=== PATIENT | female | born 1945 | race Hispanic/Latino ===

== ENCOUNTER 2016-12-07 15:47 | Inpatient (IN) | payer MEDICARE ==
--- NOTE | 2016-12-07 16:44 | XRay Report ---
FINAL REPORT EXAM: XR CHEST ROUTINE 2V HISTORY: Shortness of breath TECHNIQUE: upright single view chest PRIORS: None. FINDINGS: Cardiac and mediastinal contours are unremarkable. No focal pulmonary infiltrate is identified. No pleural fluid collection seen. Pulmonary vasculature is unremarkable. IMPRESSION: Negative single-view chest
[2016-12-07 17:04] LABS: Basophils % (Auto) 0.5 % (0.0-1.8); Eosinophils % (Auto) 4.7 % (0.0-4.3); Hematocrit 36.4 % (30.3-42.9); Hemoglobin 11.8 gm/dl (10.1-14.3); Mean Corpuscular HGB Conc 32 % (30-34); Platelet Count 212 K/mm3 (140-440); Red Blood Count 6.51 M/mm3 (3.65-5.03); Red Cell Distribution Width 18.2 % (13.2-15.2); White Blood Count 8.7 K/mm3 (4.5-11.0)
[2016-12-07 17:06] LABS: Mean Corpuscular Hemoglobin 18 pg (28-32); Mean Corpuscular Volume 56 fl (79-97)
[2016-12-07 17:43] LABS: Anion Gap 18 mmol/L; BUN/Creatinine Ratio 24; Blood Urea Nitrogen 17 mg/dL (7-17); Calcium 9.2 mg/dL (8.4-10.2); Carbon Dioxide 27 mmol/L (22-30); Chloride 100.6 mmol/L (98-107); Glucose 94 mg/dL (65-100); Potassium 4.4 mmol/L (3.6-5.0); Sodium 141 mmol/L (137-145)
--- NOTE | 2016-12-07 18:07 | Emergency Department Report ---
ED Shortness of Breath HPI - General Chief Complaint: Dyspnea/Respdistress Stated Complaint: SOB/WHEEZING/CHEST TIGHTNESS Time Seen by Provider: 12/07/16 17:55 Source: patient Mode of arrival: Ambulatory Limitations: No Limitations - History of Present Illness Initial Comments: Patient is 71 years old female history of atrial fibrillation hypertension presenting with two weeks history of shortness of breath, worse when she laid flat she stated that she have to use 2-3 pillows to sleep, associated with cough productive of brownish sputum. Patient denied any fever or chest pain, no nausea no vomiting. He stated that she just saw Dr. Schaffer her stencil printer had an echo done and blood work waiting for the results. MD Complaint: shortness of breath, cough -: Gradual, week(s) Severity: moderate Improves With: nothing Worsens With: lying flat, exertion - Related Data Home Medications Medication Instructions Recorded Confirmed Last Taken Apixaban [Eliquis] 5 mg PO BID 12/20/14 12/07/16 12/07/16 22:09 Metoprolol Xl [Metoprolol 50 mg PO QDAY 12/20/14 12/07/16 12/07/16 08:00 SUCCINATE ER TAB] Omeprazole [PriLOSEC] 20 mg PO PRN PRN 12/20/14 12/07/16 12/07/16 08:00 20MG Levothyroxine [Synthroid] 75 mcg PO QAM 01/31/15 12/07/16 12/07/16 10:00 Sotalol HCl [Sotalol] 80 mg PO BID 01/31/15 12/07/16 12/07/16 10:00 80MG Flecainide [Tambocor] 100 mg PO Q12H 12/07/16 12/07/16 12/07/16 10:00 100MG Allergies Allergy/AdvReac Type Severity Reaction Status Date / Time aspirin Allergy Anaphylaxis Verified 12/20/14 10:08 NSAIDS (Non-Steroidal Allergy Anaphylaxis Verified 12/20/14 10:08 Anti-Inflamma Penicillins Allergy Hives Verified 12/20/14 10:08 prochlorperazine Allergy Unknown Verified 12/20/14 10:08 [From Compazine] prochlorperazine edisylate Allergy Unknown Verified 12/20/14 10:08 [From Compazine] prochlorperazine maleate Allergy Unknown Verified 12/20/14 10:08 [From Compazine] Sulfa (Sulfonamide Allergy Hives Verified 12/20/14 10:08 Antibiotics) ED Review of Systems ROS: Stated complaint: SOB/WHEEZING/CHEST TIGHTNESS Other details as noted in HPI Comment: All other systems reviewed and negative Constitutional: denies: chills, fever Respiratory: cough, orthopnea, shortness of breath, SOB with exertion, SOB at rest. denies: wheezing Cardiovascular: dyspnea on exertion, orthopnea, edema. denies: chest pain, palpitations Genitourinary: denies: urgency, dysuria, frequency Neurological: denies: headache, weakness, numbness ED Past Medical Hx - Past Medical History Previous Medical History?: Yes Hx Hypertension: Yes Hx GERD: Yes Hx Arthritis: Yes Additional medical history: a-fib - Surgical History Past Surgical History?: Yes Hx Cholecystectomy: Yes Hx Appendectomy: Yes - Social History Smoking Status: Never Smoker Substance Use Type: Prescribed - Medications Home Medications: Home Medications Medication Instructions Recorded Confirmed Last Taken Type Apixaban [Eliquis] 5 mg PO BID 12/20/14 12/07/16 12/07/16 22:09 History Metoprolol Xl [Metoprolol 50 mg PO QDAY 12/20/14 12/07/16 12/07/16 08:00 History SUCCINATE ER TAB] Omeprazole [PriLOSEC] 20 mg PO PRN PRN 12/20/14 12/07/16 12/07/16 08:00 History 20MG Levothyroxine [Synthroid] 75 mcg PO QAM 01/31/15 12/07/16 12/07/16 10:00 History Sotalol HCl [Sotalol] 80 mg PO BID 01/31/15 12/07/16 12/07/16 10:00 History 80MG Flecainide [Tambocor] 100 mg PO Q12H 12/07/16 12/07/16 12/07/16 10:00 History 100MG ED Physical Exam - General Limitations: No Limitations General appearance: alert, in no apparent distress - Head Head exam: Present: atraumatic, normocephalic - Eye Eye exam: Present: normal appearance, PERRL - ENT ENT exam: Present: normal exam, normal orophraynx, mucous membranes moist - Neck Neck exam: Present: normal inspection. Absent: tenderness, meningismus - Respiratory Respiratory exam: Present: decreased breath sounds. Absent: respiratory distress, wheezes, rales, accessory muscle use - Cardiovascular Cardiovascular Exam: Present: irregular rhythm - GI/Abdominal GI/Abdominal exam: Present: soft, normal bowel sounds. Absent: distended, tenderness, guarding, rebound - Extremities Exam Extremities exam: Present: normal inspection, normal capillary refill, pedal edema - Back Exam Back exam: Present: normal inspection. Absent: CVA tenderness (R), CVA tenderness (L) - Neurological Exam Neurological exam: Present: alert, oriented X3, CN II-XII intact - Skin Skin exam: Present: warm, intact, normal color ED Course Vital Signs 12/07/16 12/07/16 12/07/16 15:52 15:56 17:02 Temperature 97.7 F Pulse Rate 78 87 Respiratory 16 26 H 20 Rate Blood Pressure 212/89 212/89 O2 Sat by Pulse 95 95 Oximetry 12/07/16 12/07/16 12/07/16 17:16 17:20 17:21 Temperature Pulse Rate 80 88 Respiratory 19 24 Rate Blood Pressure 165/76 O2 Sat by Pulse 96 97 Oximetry 12/07/16 12/07/16 12/07/16 17:30 17:46 18:00 Temperature Pulse Rate 77 77 78 Respiratory 19 20 16 Rate Blood Pressure 186/81 170/75 182/92 O2 Sat by Pulse 95 96 97 Oximetry 12/07/16 12/07/16 12/07/16 18:15 18:30 18:45 Temperature Pulse Rate 73 74 75 Respiratory 20 19 19 Rate Blood Pressure 174/75 175/65 157/62 O2 Sat by Pulse 97 97 98 Oximetry 12/07/16 12/07/16 12/07/16 19:00 19:16 19:30 Temperature Pulse Rate 76 79 83 Respiratory 21 20 18 Rate Blood Pressure 161/67 161/74 152/64 O2 Sat by Pulse 95 88 96 Oximetry 12/07/16 12/07/16 12/07/16 19:46 20:00 20:24 Temperature Pulse Rate 77 79 95 H Respiratory 14 19 25 H Rate Blood Pressure 155/62 159/59 159/59 O2 Sat by Pulse 96 95 95 Oximetry 12/07/16 12/07/16 12/07/16 20:30 20:46 21:00 Temperature Pulse Rate 81 81 86 Respiratory 21 15 15 Rate Blood Pressure 159/59 159/59 159/59 O2 Sat by Pulse 96 96 96 Oximetry - Reevaluation(s) Reevaluation #1: 12/07/16 19:[address] Nielson, stencil printer, he advised to admit the patient to the hospital start patient on Lasix and he will follow-up was high in the morning. ED Medical Decision Making - Lab Data Result diagrams: 12/07/16 19:57 12/07/16 19:57 - EKG Data -: EKG Interpreted by Me Rate: normal - EKG Data Interpretation: nonspecific ST-T wave gilberto, other (needle left bundle-branch block) - Radiology Data Radiology results: report reviewed Chest x-ray unremarkable for acute finding - Medical Decision Making Labs reviewed x-rays and consultation with a stencil printer patient will be admitted to the hospital for workup and treatment for shortness of breath. discuss with Dr Guadarrama for admission. Critical care attestation.: If time is entered above; I have spent that time in minutes in the direct care of this critically ill patient, excluding procedure time. ED Disposition Clinical Impression: Shortness of breath, Afib, Hypertension Disposition: OP ADMIT IP TO THIS HOSP Is pt being admited?: Yes Does the pt Need Aspirin: No (allergic) Condition: Stable
[2016-12-07] MEDS ORDERED: MILK OF MAGNESIA PO PRN (19:43)
[2016-12-07] MEDS ORDERED: NITROSTAT SL PRN (19:43)
[2016-12-07] MEDS ORDERED: DULCOLAX PR PRN (19:43)
[2016-12-07] MEDS ORDERED: TYLENOL PO PRN (19:43)
[2016-12-07] MEDS ORDERED: MORPHINE IV PRN (19:43)
[2016-12-07] MEDS ORDERED: SODIUM CHLORIDE FLUSH SYRINGE 10 ML IV PRN (19:43)
[2016-12-07] MEDS ORDERED: BABY ASPIRIN PO STA (19:43)
[2016-12-07] MEDS ORDERED: PROVENTIL IH PRN (19:43)
[2016-12-07] MEDS ORDERED: ZOFRAN IV PRN (19:43)
--- NOTE | 2016-12-07 19:48 | History and Physical Report ---
History of Present Illness Chief complaint: Im short of breath and i have this cough History of present illness: 71 YO Female with Atrial Fib on Therapeutic Anticoagulation, HTN, GERD, OA, Obesity presents to ED for evaluation. Pt states that she has exeperienced shortness of breath and productive cough of lakhani sputum for the past 2 weeks with worsening symptoms over the past week. Pt acknowledges 2-3 pillow orthopnea, PND, and Dypsnea on exertion. Pt acknowledges decreased exercise tolerance over the past 1 month, as well as 5lbs weight gain over the past 10 days. Pt seen by change coordinator and hae echo done at that time. Pt denies fever, chills,CP, palpitations, unintentional weight loss,night sweats, trauma, noncompliance with low sodium diet, noncompliance with medication, unilateral leg swelling, calf pain, prolonged travel/immobility, recent ill contacts. Pt seen and evaluated in ED and found to be in respiratory distress. Pt treated with supplemental oxygen with improvement in symptoms. Past History Past Medical History: atrial fib, arthritis, GERD, hypertension, other (obesity) Past Surgical History: appendectomy, cholecystectomy Social history: , lives with family. denies: smoking, alcohol abuse, prescription drug abuse, IV drug use Family history: no significant family history (reviewed) Medications and Allergies Allergies Allergy/AdvReac Type Severity Reaction Status Date / Time aspirin Allergy Anaphylaxis Verified 12/20/14 10:08 NSAIDS (Non-Steroidal Allergy Anaphylaxis Verified 12/20/14 10:08 Anti-Inflamma Penicillins Allergy Hives Verified 12/20/14 10:08 prochlorperazine Allergy Unknown Verified 12/20/14 10:08 [From Compazine] prochlorperazine edisylate Allergy Unknown Verified 12/20/14 10:08 [From Compazine] prochlorperazine maleate Allergy Unknown Verified 12/20/14 10:08 [From Compazine] Sulfa (Sulfonamide Allergy Hives Verified 12/20/14 10:08 Antibiotics) Home Medications Medication Instructions Recorded Confirmed Last Taken Type Apixaban [Eliquis] 5 mg PO BID 12/20/14 12/07/16 12/07/16 22:09 History Metoprolol Xl [Metoprolol 50 mg PO QDAY 12/20/14 12/07/16 12/07/16 08:00 History SUCCINATE ER TAB] Omeprazole [PriLOSEC] 20 mg PO PRN PRN 12/20/14 12/07/16 12/07/16 08:00 History 20MG Levothyroxine [Synthroid] 75 mcg PO QAM 01/31/15 12/07/16 12/07/16 10:00 History Sotalol HCl [Sotalol] 80 mg PO BID 01/31/15 12/07/16 12/07/16 10:00 History 80MG Flecainide [Tambocor] 100 mg PO Q12H 12/07/16 12/07/16 12/07/16 10:00 History 100MG Review of Systems Constitutional: weight gain, no weight loss, no fever, no chills, no sweats Ears, nose, mouth and throat: no ear pain, no ear discharge, no tinnitis, no decreased hearing, no nose pain, no nasal congestion Cardiovascular: orthopnea, rapid/irregular heart beat, shortness of breath, dyspnea on exertion, paroxysmal nocturnal dyspnea, leg edema, no chest pain, no palpitations, no syncope, no lightheadedness Respiratory: cough, cough with sputum, shortness of breath, dyspnea on exertion , no hemoptysis Gastrointestinal: no nausea, no vomiting, no diarrhea, no constipation, no change in bowel habits, no hematemesis Genitourinary Female: no pelvic pain, no flank pain, no menorrhagia, no dysuria , no urinary frequency Rectal: no pain, no incontinence, no bleeding Musculoskeletal: no neck stiffness, no neck pain, no shooting arm pain, no arm numbness/tingling, no low back pain, no shooting leg pain Integumentary: no rash, no pruritis, no redness, no sores, no wounds, no jaundice Neurological: no head injury, no transient paralysis, no paralysis, no weakness , no parathesias, no numbness, no tingling, no seizures, no syncope Psychiatric: no anxiety, no memory loss, no change in sleep habits, no sleep disturbances, no insomnia, no hypersomnia, no change in appetite Endocrine: no cold intolerance, no heat intolerance, no polyphagia, no excessive thirst, no polydipsia, no polyuria Hematologic/Lymphatic: no easy bruising, no easy bleeding Allergic/Immunologic: no urticaria, no allergic rhinitis, no wheezing Exam - Constitutional Vitals: Temp Pulse Resp BP Pulse Ox 97.7 F 88 24 165/76 97 12/07/16 15:56 12/07/16 17:20 12/07/16 17:21 12/07/16 17:16 12/07/16 17:21 General appearance: Present: mild distress - EENT Eyes: Present: PERRL ENT: hearing intact, clear oral mucosa - Neck Neck: Present: supple, normal ROM - Respiratory Respiratory: bilateral: diminished, rhonchi - Cardiovascular Rhythm: irregularly irregular - Extremities Extremities: pulses symmetrical, No edema Extremity abnormal: edema Peripheral Pulses: within normal limits - Abdominal General gastrointestinal: Present: soft, non-tender, non-distended, normal bowel sounds Female genitourinary: Present: normal - Integumentary Integumentary: Present: clear, dry - Musculoskeletal Musculoskeletal: gait normal, strength equal bilaterally - Psychiatric Psychiatric: appropriate mood/affect, intact judgment & insight - Neurologic Neurologic: CNII-XII intact, moves all extremities Results - Labs CBC & Chem 7: 12/07/16 19:57 12/07/16 19:57 Labs: Abnormal lab results 12/07/16 Range/Units 16:30 RBC 6.51 H (3.65-5.03) M/mm3 MCV 56 L (79-97) fl MCH 18 L (28-32) pg RDW 18.2 H (13.2-15.2) % Arch[place]ta % (Auto) 9.4 H (0.0-7.3) % Eos % (Auto) 4.7 H (0.0-4.3) % Assessment and Plan - Patient Problems (1) ACS (acute coronary syndrome) Current Visit: Yes Status: Acute Plan to address problem: serial cardiac enzymes, ekg, admit to telemetry, Morphine, supplemental oxygen, Nitro tabs, aspirin, supportive care, cardiology consulted, Echo done in cardiologists office. (2) Hypertensive urgency Current Visit: Yes Status: Acute Plan to address problem: Monitor bp q shift, IV hydralazine, resume current medical management, (3) Atrial fibrillation and flutter Current Visit: Yes Status: Acute Plan to address problem: Therapeutic anticoagulation, cardiology consulted, rate control with Beta damaris. (4) Respiratory failure Current Visit: Yes Status: Acute Qualifiers: Chronicity: C Respiratory failure complication: R Plan to address problem: Supplemental oxygen, nebs, diuresis, pulmonary toilet, tessalon perles for cough , CTA chest to evaluate for embolic disease as well as lung parenchyma evaluation. If no improvement in symptoms with current therapy, may consider treatment for chronic bronchitis. (5) GERD (gastroesophageal reflux disease) Current Visit: Yes Status: Acute Qualifiers: Esophagitis presence: E Plan to address problem: PPI therapy, sit up for 2 hours after evening meal, Increase dose to 20mg BID before meals. (6) DVT prophylaxis Current Visit: Yes Status: Acute
[2016-12-07] MEDS ORDERED: NON-FORMULARY (Omeprazole [Prilosec] 20 MG) PO PRN (19:49)
[2016-12-07 20:06] LABS: Basophils % (Auto) 0.5 % (0.0-1.8); Eosinophils % (Auto) 4.9 % (0.0-4.3); Mean Corpuscular HGB Conc 31 % (30-34); Platelet Count 212 K/mm3 (140-440); Red Blood Count 6.37 M/mm3 (3.65-5.03); White Blood Count 8.3 K/mm3 (4.5-11.0)
[2016-12-07 20:08] LABS: Mean Corpuscular Hemoglobin 17 pg (28-32); Mean Corpuscular Volume 57 fl (79-97)
[2016-12-07] MEDS ORDERED: NACL ONE (20:15)
[2016-12-07] MEDS ORDERED: APRESOLINE IV PRN (20:26)
[2016-12-07] MEDS ORDERED: PROTONIX PO PRN (20:28)
[2016-12-07 20:34] LABS: Anion Gap 19 mmol/L; BUN/Creatinine Ratio 21; Blood Urea Nitrogen 15 mg/dL (7-17); Carbon Dioxide 25 mmol/L (22-30); Glucose 99 mg/dL (65-100); Potassium 4.2 mmol/L (3.6-5.0); Sodium 143 mmol/L (137-145)
--- NOTE | 2016-12-07 20:57 | Cat Scan Report ---
FINAL REPORT EXAM: CT ANGIO CHEST HISTORY: chest pain/dyspnea TECHNIQUE: Enhanced CT of the chest at 1.25 mm axial intervals following a pulmonary embolism protocol. Coronal and sagittal imaging were also obtained. Oblique coronal MIP projections were obtained. Contrast: 100 ml of Omnipaque 350 given IV. PRIORS: CXR 12/07/2016 FINDINGS: There is no evidence for pulmonary embolism in the main pulmonary artery, right and left pulmonary arteries or their major distributions. However, CT does not exclude distal pulmonary emboli. Within the neck, there is a nodular extension off the caudal end of the right lobe of the thyroid. This measures 4.6 x 3.4 cm (axial image 19, series 3) and extends to the level of the manubrium suggesting a substernal goiter. The innominate artery and left common carotid arteries are displaced around this focus. The trachea is displaced to the left of midline above the clavicles. There is a 4 mm nonspecific perivascular nodule in the periphery of the right middle lobe (axial image 56, series 3). Linear atelectasis in the lingula and right base posteriorly is noted. Otherwise, there is no evidence for parenchymal infiltrates, congestion, or pleural effusion. There is a 1 cm subcarinal lymph node identified which may be reactive. There is no other evidence for mediastinal, hilar, or axillary adenopathy. Cardiovascular structures are within normal limits. No evidence for ventricular chamber enlargement is seen. Images through the lung bases include the upper abdomen which show no abnormalities of the visualized abdominal viscera. Bony structures demonstrate no focal abnormalities. IMPRESSION: 1. no evidence for pulmonary embolism. 2. 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 3. Perivascular nodule in the right middle lobe is nonspecific. 4. Linear atelectasis in the lingula and right lower lobe posteriorly
[2016-12-07] MEDS ORDERED: BABY ASPIRIN ONE (21:10)
[2016-12-07] MEDS: TESSALON PERLES PO SCH (21:33)
[2016-12-07] MEDS ORDERED: [UNRECOGNIZED DRUG - OTHER] PO SCH (22:00)
[2016-12-07] MEDS ORDERED: ELIQUIS PO SCH (22:00)
[2016-12-07] MEDS ORDERED: BETAPACE PO SCH (22:00)
[2016-12-08] MEDS: SYNTHROID PO SCH (05:37)
[2016-12-08] MEDS: TESSALON PERLES PO SCH ×3 (05:37→22:59)
[2016-12-08] MEDS ORDERED: PROTONIX PO PRN (05:51)
[2016-12-08] MEDS ORDERED: LASIX IV SCH (06:00)
--- NOTE | 2016-12-08 10:21 | Consultation ---
History of Present Illness Consult date: 12/08/16 Requesting physician: DUKE CORDON Consult reason: other ("ACS:) History of present illness: The pt is a 71 YO female with a past medical history significant for HTN, HLP, atrial fibrillation s/p ablation 01/2015, anticoagulated with Eliquis, hypothyroidism, ASA allergy. She is followed in our office by Dr. Schaffer. She presented with c/o SOB, BHATTI and orthopnea x 1 month [employer]OUTER T[employer]ER. She also c/o productive cough with greenish sputum x 2-3 days [employer]OUTER [employer]ER. She denies any fever, chills, chest pain, palpitations, n/v, diaphoresis, dizziness or syncope. Troponins following admission were found to be minimally elevated and with abnormal EKG and thus cardiology has been consulted. Echo done 12/03/2016 showed EF 55-60%, mild LVH, LA mildly enlarged, trace . Liban MPI stress test done 02/2011 as negative for significant ischemia, EF 65 %. Past History Past Medical History: atrial fib, arthritis, GERD, hypertension, other (obesity) Past Surgical History: appendectomy, cholecystectomy Social history: , lives with family. denies: smoking, alcohol abuse, prescription drug abuse, IV drug use Family history: no significant family history (reviewed) Medications and Allergies Allergies Allergy/AdvReac Type Severity Reaction Status Date / Time aspirin Allergy Anaphylaxis Verified 12/20/14 10:08 NSAIDS (Non-Steroidal Allergy Anaphylaxis Verified 12/20/14 10:08 Anti-Inflamma Penicillins Allergy Hives Verified 12/20/14 10:08 prochlorperazine Allergy Unknown Verified 12/20/14 10:08 [From Compazine] prochlorperazine edisylate Allergy Unknown Verified 12/20/14 10:08 [From Compazine] prochlorperazine maleate Allergy Unknown Verified 12/20/14 10:08 [From Compazine] Sulfa (Sulfonamide Allergy Hives Verified 12/20/14 10:08 Antibiotics) Home Medications Medication Instructions Recorded Confirmed Last Taken Type Apixaban [Eliquis] 5 mg PO BID 12/20/14 12/07/16 12/07/16 22:09 History Metoprolol Xl [Metoprolol 50 mg PO QDAY 12/20/14 12/07/16 12/07/16 08:00 History SUCCINATE ER TAB] Omeprazole [PriLOSEC] 20 mg PO PRN PRN 12/20/14 12/07/16 12/07/16 08:00 History 20MG Levothyroxine [Synthroid] 75 mcg PO QAM 01/31/15 12/07/16 12/07/16 10:00 History Flecainide [Tambocor] 100 mg PO Q12H 12/07/16 12/07/16 12/07/16 10:00 History 100MG hydrALAZINE [Apresoline] 25 mg PO BID 12/08/16 12/08/16 12/07/16 21:00 History Active Meds: Active Medications Acetaminophen (Tylenol) 650 mg PO Q4H PRN PRN Reason: Pain MILD(1-3)/Fever >100.5/CHUA Albuterol (Proventil) 2.5 mg IH Q4H PRN PRN Reason: Shortness Of Breath Apixaban (Eliquis) 5 mg PO BID [facility] PRN Reason: Protocol Last Admin: 12/07/16 21:32 Dose: 5 mg Benzonatate (Tessalon Perles) 100 mg PO Q8HR [facility] Last Admin: 12/08/16 05:37 Dose: 100 mg Bisacodyl (Dulcolax) 10 mg [place] QDAY PRN PRN Reason: Constipation unrelieved by MOM Furosemide (Lasix) 20 mg IV 0600,1800 [facility] Last Admin: 12/08/16 05:36 Dose: 20 mg Hydralazine HCl (Apresoline) 10 mg IV Q6HR PRN PRN Reason: Hypertension Levothyroxine Sodium (Synthroid) 75 mcg PO QAM@0600 [facility] Last Admin: 12/08/16 05:37 Dose: 75 mcg Magnesium Hydroxide (Milk Of Magnesia) 30 ml PO Q4H PRN PRN Reason: Constipation Metoprolol Succinate (Toprol Xl) 50 mg PO QDAY [facility] Morphine Sulfate (Morphine) 1 mg IV Q4H PRN PRN Reason: Pain, Moderate (4-6) Nitroglycerin (Nitrostat) 0.4 mg SL Q5M PRN PRN Reason: Chest Pain Ondansetron HCl (Zofran) 4 mg IV Q8H PRN PRN Reason: N/V unrelieved by Reglan Pantoprazole Sodium (Protonix) 20 mg PO BID PRN PRN Reason: DYSPEPSIA Sodium Chloride (Sodium Chloride Flush Syringe 10 Ml) 10 ml IV PRN PRN PRN Reason: LINE FLUSH Sotalol HCl (Betapace) 80 mg PO Q12HR [facility] Last Admin: 12/07/16 21:33 Dose: 80 mg Review of Systems Constitutional: no weight loss, no weight gain, no fever, no chills, no sweats Ears, nose, mouth and throat: no ear pain, no nose pain, no sinus pressure, no sinus pain Cardiovascular: orthopnea, shortness of breath, dyspnea on exertion, paroxysmal nocturnal dyspnea, high blood pressure, decreased exercise tolerance, no chest pain, no palpitations, no rapid/irregular heart beat, no edema, no syncope, no lightheadedness Respiratory: cough, cough with sputum, shortness of breath, dyspnea on exertion , no pain on inspiration Gastrointestinal: no abdominal pain, no nausea, no vomiting, no diarrhea, no constipation, no change in bowel habits Genitourinary Female: no pelvic pain, no flank pain, no dysuria, no urinary frequency, no urgency Musculoskeletal: no neck stiffness, no neck pain, no shooting arm pain, no arm numbness/tingling, no low back pain, no shooting leg pain, no leg numbness/ tingling, no redness of joints Integumentary: no rash, no pruritis, no redness, no sores, no wounds Neurological: no paralysis, no weakness, no parathesias, no numbness, no tingling, no seizures, no syncope Psychiatric: no anxiety Endocrine: no cold intolerance, no heat intolerance Hematologic/Lymphatic: no easy bruising, no easy bleeding Allergic/Immunologic: no urticaria, no wheezing, no persistent infections Physical Examination Vital Signs Resp BP 16 212/89 12/07/16 15:52 12/07/16 15:52 General appearance: no acute distress HEENT: Positive: PERRL, Normocephaly, Mucus Membranes Moist Neck: Positive: neck supple, trachea midline Cardiac: Positive: Reg Rate and Rhythm, S1/S2 Lungs: Positive: Decreased Breath Sounds Neuro: Positive: Grossly Intact, Cranial Nerve 2-12 Intact Abdomen: Positive: Unremarkable, Soft, Active Bowel Sounds. Negative: Tender Skin: Positive: Clear. Negative: Rash, Wound Musculoskeletal: No Fluid Collection, No Pain, Normal Range of Motion Extremities: Absent: edema Results 12/07/16 19:57 12/07/16 19:57 Lipids 12/07/16 Range/Units 19:57 Triglycerides 187 H (2-149) mg/dL Cholesterol 133 (50-199) mg/dL HDL Cholesterol 23 L (40-59) mg/dL Cholesterol/HDL Ratio 5.78 % CBC 12/07/16 Range/Units 19:57 WBC 8.3 (4.5-11.0) K/mm3 RBC 6.37 H (3.65-5.03) M/mm3 Hgb 11.0 (10.1-14.3) gm/dl Hct 36.0 (30.3-42.9) % Plt Count 212 (140-440) K/mm3 Lymph # 1.6 (1.2-5.4) K/mm3 Storey # 0.7 (0.0-0.8) K/mm3 Eos # 0.4 (0.0-0.4) K/mm3 Baso # 0.0 (0.0-0.1) K/mm3 Comprehensive Metabolic Panel 12/07/16 Range/Units 19:57 Sodium 143 (137-145) mmol/L Potassium 4.2 (3.6-5.0) mmol/L Chloride 103.0 (98-107) mmol/L Carbon Dioxide 25 (22-30) mmol/L BUN 15 (7-17) mg/dL Creatinine 0.7 (0.7-1.2) mg/dL Glucose 99 (65-100) mg/dL Calcium 9.0 (8.4-10.2) mg/dL - Imaging and Cardiology Echo: report reviewed (12/03/2016 showed EF 55-60%, mild LVH, LA mildly enlarged , trace MR. ) EKG: report reviewed, image reviewed EKG interpretations - Telemetry EKG Rhythm: Sinus Rhythm - EKG Sinus rhythms and dysrhythmias: sinus rhythm AV and intraventricular conduction: left bundle branch block (incomplete) Assessment and Plan Assessment: ? acute diastolic heart failure - mild component BHATTI x 1 month Abnormal EKG - incomplete LBBB Elevated troponin - flat; pt denies chest pain Accelerated HTN - improved ? acute bronchitis / Lung nodule HLP H/o atrial fibrillation, s/p ablation, anticoagulated with Eliquis H/o ASA allergy - causes anaphylaxis per pt report H/o hypothyroidism Obesity Plan: No ASA in setting of ASA allergy. Initiate lipitor, 40mg daily. Cont home Toprol XL and flecainide. Hold Eliquis for today. Pulmonary consulted per primary. Plan for coronary angiography in AM. Indications, potential risks and benefits of LHC reviewed with pt and she is agreeable to proceed in AM. NPO after MN. Assessment and plan reviewed with pt at bedside. The patient has been seen in conjunction with Dr. Gonzalez who agrees with the assessment and plan of care.
--- NOTE | 2016-12-08 10:41 | Progress Note ---
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 She had a recent echocardiogram at Dr. Schaffer's office. Chest x- ray read as negative, CTA of the chest read as no PE but large quarter, nodule right middle lobe and lingula and right lower lobe. CXR and ProBNP is normal; therefore, unlikely acute heart failure -Shortness of breath most likely related to acute bronchitis, she really can't tolerate albuterol because it causes rapid afib (use atrovent nebs instead): Consult pulmonology, start atrovent nebs, steroids, abx (no pcn b/c allergy, no levaquin/azithromycin b/c drug-drug interaction, use doxyc instead) -Atrial fibrillation: Continue anticoagulation and flecainide, cardiology consulted -Accelerated hypertension: Home medication reconciliation done after I discussed with nurse and she updated patient's medication in the computer, pt is not on Betapace, on Lopressor instead -Lung nodule + second hand smoke exposure: Consulted pulmonology -CT read as quarter but patient had her thyroid ablated: Check TSH -DVT prophylaxis: hold Eliquis due to plans for Cardiac cath tomorrow. -Abnormal EKG, Cardiac cath tomorrow, hold Eliquis use sq heparin for dvt prophylaxis History Interval history: Patient was seen and examined. Follow-up on current diagnosis/sob which is better. Overnight uneventful. Patient denies any chest pain, nausea/vomiting or severe headaches. Imaging, nursing note, chart, labs and old chart reviewed. Discussed with patient. She is wheezing. She denies smoking but her current is a smoker and her ex- was a smoker. Hospitalist Physical - Physical exam Narrative exam: GEN: WDWN, NAD, AWAKE, ALERT, ORIENTATED x 3 HEENT: NCAT, EOMI, PERRL, OP Clear NECK: supple, no adenopathy, no thyromegaly, no JVD CVS/HEART: RRR, NORMAL S1S2, NO JVD, pulses present bilaterally CHEST/LUNGS: bilateral wheezing, Symmetrical chest expansion, diminished air entry bilaterally GI/Abdomen: soft, NTND, good bowel sounds, no guarding or rebound /Bladder: no suprapubic tenderness, no CVA or paraspinal tenderness EXT/Skin: no c/c/e, no obvious rash MSK: FROM x 4 Neuro: CN 2-12 grossly intact, no new focal deficits Psych: calm - Constitutional Vitals: Temp Pulse Resp BP Pulse Ox 98.1 F 69 20 133/51 94 12/08/16 07:40 12/08/16 07:40 12/08/16 07:40 12/08/16 07:40 12/08/16 08:44 Results - Labs CBC & Chem 7: 12/07/16 19:57 12/07/16 19:57 Labs: Laboratory Last Values WBC 8.3 K/mm3 (4.5-11.0) 12/07/16 19:57 RBC 6.37 M/mm3 (3.65-5.03) H 12/07/16 19:57 Hgb 11.0 gm/dl (10.1-14.3) 12/07/16 19:57 Hct 36.0 % (30.3-42.9) 12/07/16 19:57 MCV 57 fl (79-97) L 12/07/16 19:57 MCH 17 pg (28-32) L 12/07/16 19:57 MCHC 31 % (30-34) 12/07/16 19:57 RDW 18.0 % (13.2-15.2) H 12/07/16 19:57 Plt Count 212 K/mm3 (140-440) 12/07/16 19:57 Lymph % (Auto) 18.8 % (13.4-35.0) 12/07/16 19:57 [place] % (Auto) 8.1 % (0.0-7.3) H 12/07/16 19:57 Eos % (Auto) 4.9 % (0.0-4.3) H 12/07/16 19:57 Baso % (Auto) 0.5 % (0.0-1.8) 12/07/16 19:57 Lymph # 1.6 K/mm3 (1.2-5.4) 12/07/16 19:57 [place] # 0.7 K/mm3 (0.0-0.8) 12/07/16 19:57 Eos # 0.4 K/mm3 (0.0-0.4) 12/07/16 19:57 Baso # 0.0 K/mm3 (0.0-0.1) 12/07/16 19:57 Seg Neutrophils % 67.7 % (40.0-70.0) 12/07/16 19:57 Seg Neutrophils # 5.6 K/mm3 (1.8-7.7) 12/07/16 19:57 D-Dimer < 135.00 ng/mlDDU (0-234) 12/07/16 19:44 Sodium 143 mmol/L (137-145) 12/07/16 19:57 Potassium 4.2 mmol/L (3.6-5.0) 12/07/16 19:57 Chloride 103.0 mmol/L (98-107) 12/07/16 19:57 Carbon Dioxide 25 mmol/L (22-30) 12/07/16 19:57 Anion Gap 19 mmol/L 12/07/16 19:57 BUN 15 mg/dL (7-17) 12/07/16 19:57 Creatinine 0.7 mg/dL (0.7-1.2) 12/07/16 19:57 Estimated GFR > 60 ml/min 12/07/16 19:57 BUN/Creatinine Ratio 21 % 12/07/16 19:57 Glucose 99 mg/dL (65-100) 12/07/16 19:57 Calcium 9.0 mg/dL (8.4-10.2) 12/07/16 19:57 Troponin T 0.027 ng/mL (0.00-0.029) 12/08/16 01:23 NT-Pro-B Natriuret Pep 176.8 pg/mL (0-900) 12/07/16 16:30 Triglycerides 187 mg/dL (2-149) H 12/07/16 19:57 Cholesterol 133 mg/dL (50-199) 12/07/16 19:57 LDL Cholesterol Direct 73 mg/dL (50-130) 12/07/16 19:57 HDL Cholesterol 23 mg/dL (40-59) L 12/07/16 19:57 Cholesterol/HDL Ratio 5.78 % 12/07/16 19:57 TSH 3.050 mlU/mL (0.270-4.200) 12/07/16 19:57 Free T4 1.17 ng/dL (0.76-1.46) 12/07/16 19:57
[2016-12-08] MEDS: TAMBOCOR PO SCH ×2 (10:56→22:59)
[2016-12-08] MEDS: TOPROL XL PO SCH (10:57)
[2016-12-08] MEDS ORDERED: ASPIRIN PO SCH (11:00)
[2016-12-08] MEDS ORDERED: NACL 0.9% 500 ML 500 ML IV SCH (11:00)
[2016-12-08] MEDS: ATROVENT IH SCH ×3 (14:25→21:16)
[2016-12-08] MEDS: VIBRAMYCIN PO SCH ×2 (17:32→22:59)
--- NOTE | 2016-12-08 19:09 | Event Note ---
Date: 12/08/[address] CORDON THANK YOU FOR ASKING US TO PARTICIPATE IN THE CARE OF THIS PATIENT. PULMONARY CONSULTATION DICTATION NUMBER: [id number] THIS 71 YEAR OLD WHITE FEMALE ADMITTED WITH SHORTNESS OF BREATH AND COUGH.Patient has history of Atrial fibrillation, S/P ablation.Also has history of Hypertension, GERD, Osteo arthritis, Hypothyroidism and Obesity. Patient having shortness of breath for 2 months and progressively got worse.Patient coughing up white yellow sputum. Denies fever, chills, sore throat or nasal congestion. Denies chest pain.No history of smoking, alcohol or drug abuse. 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 Patient gave the history she worked in [employer] area in [facility].Allergic to aspirin, NSAIDS,penicillins. and has four children. Patient Obese. Complaining snoring, fragmentation of sleep, Nocturia and day time sleepiness and tireness. Patient may have sleep apnea. Recommend sleep study as outpatient. IMMPRESSION; 1. SHORTNESS OF BREATH. 2. ACUTE BRONCHITIS 3. ATRIAL FIBRILLATION 4. HYPERTENSION 5. GERD 6. OSTEOARTHRITIS 7. HYPOTHYROIDISM 8. OBESITY 9. POSSIBLE OBSTRUCTIVE SLEEP APNEA. 10.4 mm NON SPECIFIC NODULE IN RIGHT MIDDLE LOBE. PLAN; 1. O2 2 litres via nasal canula 2. ABGs on room air 3. Continue doxycycline 4. Continue S/C Heparin. 5. Continue Protonix. 6. Sleep study as out patient. 7. Patient may not need I/V solumedral for present pulmonary problems. 8. Albuterol 2 puffs po q6 hours prn for shortness of breath 9. PFTs as out patient.
[2016-12-08] MEDS ORDERED: DUONEB *Not for PRN Use IH SCH (21:15)
[2016-12-08] MEDS ORDERED: ELIQUIS PO SCH (22:00)
[2016-12-08] MEDS ORDERED: HEPARIN SUB-Q SCH (22:00)
[2016-12-08] MEDS: APRESOLINE PO SCH (22:55)
[2016-12-09 05:20] LABS: Basophils % (Auto) 0.2 % (0.0-1.8); Hematocrit 36.5 % (30.3-42.9); Mean Corpuscular HGB Conc 30 % (30-34); Mean Corpuscular Hemoglobin 17 pg (28-32); Mean Corpuscular Volume 56 fl (79-97); Platelet Count 228 K/mm3 (140-440); Red Blood Count 6.49 M/mm3 (3.65-5.03); Red Cell Distribution Width 18.1 % (13.2-15.2); White Blood Count 7.4 K/mm3 (4.5-11.0)
[2016-12-09 05:29] LABS: INR 1.04 (0.87-1.13)
[2016-12-09 05:42] LABS: Anion Gap 21 mmol/L; BUN/Creatinine Ratio 26; Blood Urea Nitrogen 18 mg/dL (7-17); Calcium 9.3 mg/dL (8.4-10.2); Carbon Dioxide 23 mmol/L (22-30); Chloride 98.3 mmol/L (98-107); Glucose 159 mg/dL (65-100); Potassium 4.6 mmol/L (3.6-5.0); Sodium 138 mmol/L (137-145)
--- NOTE | 2016-12-09 06:18 | Consultation ---
CONSULTED BY: Dr. Guadarrama. GEOLOGICAL DRAFTER: MD Dr. Thierry Andrews, thank you for asking me to participate in the care of this patient. REASON FOR CONSULTATION: Acute bronchitis, shortness of breath, cough, obesity, and possible sleep apnea. HISTORY OF PRESENT ILLNESS: This is a 71-year-old white female admitted with shortness of breath and cough. The patient is coughing up white yellow sputum. She denies chest pain. The patient's symptoms are going on for the last 2 months and getting progressively worse. The patient has a history of atrial fibrillation, status post ablation, also has a history of hypertension, gastroesophageal reflux, hypothyroidism, osteoarthritis, and obesity. The patient, however, denied chest pain, fever, chills, sore throat and nasal congestion. The patient has no history of smoking, alcohol or drug abuse. However, she is exposed to the secondhand smoking. The patient denies any history of asthma or COPD. 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 ALLERGIES: THE PATIENT IS ALLERGIC TO THE NSAIDs, PENICILLIN AND ASPIRIN. The patient is obese and complaining of snoring, fragmentation with sleep, nocturia and daytime sleepiness and fatigue. The patient may have a sleep apnea. Recommend sleep study as an outpatient. The patient is and she has 4 children. The patient has an angio CT of the chest reported no pulmonary embolism. No evidence of pulmonary embolism. 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 The patient's chest x-ray negative, single view of the chest has been reported. LABORATORY DATA: The patient's CBC: WBC 8.3, hemoglobin 11, hematocrit 36, platelet count is 212,000. D-dimer is less than 135. The patient's CMP showed sodium 143, potassium 4.2, BUN 15, creatinine 0.7 and TSH is 3.05, free T4 is 1.17, cholesterol is 133. PHYSICAL EXAMINATION: GENERAL: The patient is obese, resting on nasal cannula. No acute respiratory distress at this time. VITAL SIGNS: Temperature is 97.7, pulse 79, respirations 18, and O2 saturation is 93% on nasal 2 L O2. HEENT: Eyes: Pupils are equal and reactive. Extraocular muscles intact. Throat: Mallampati classification 3. NECK: Short and supple. HEART: Regular rate and rhythm. LUNGS: No wheezes, no rales or rhonchi. ABDOMEN: Obese, soft, bowel sounds present. No CVA tenderness. MUSCULOSKELETAL: No edema, no clubbing, no cyanosis. NEUROLOGICAL: No focal neurological deficits. IMPRESSION: 1. Shortness of breath. 2. Acute bronchitis. 3. Atrial fibrillation. 4. Hypertension. 5. Gastroesophageal reflux. 6. osteoarthritis. 7. Hypothyroidism. 8. Obesity. 9. Possible obstructive sleep apnea. PLAN: 1. O2, 2 liters via nasal cannula. 2. ABGs on room air. 3. Continue doxycycline. 4. Continue subcutaneous heparin. 5. Continue Protonix. 6. Sleep study as an outpatient. 7. The patient may not need steroids from a pulmonary point of view at this time and also pulmonary function tests as an outpatient. I want to thank Dr. Guadarrama for this consultation. I will follow the patient with him. JOB# [id number] RSClark/BHANU
[2016-12-09] MEDS: SYNTHROID PO SCH (06:55)
[2016-12-09] MEDS: TESSALON PERLES PO SCH ×2 (06:55→15:50)
[2016-12-09] MEDS ORDERED: NITROGLYCERIN SYRINGE 0 ML ONE (08:45)
[2016-12-09] MEDS ORDERED: CALAN ONE (08:45)
[2016-12-09] MEDS ORDERED: NITROGLYCERIN SYRINGE 3 ML ONE (09:16)
[2016-12-09] MEDS: SUBLIMAZE ONE ×3 (09:17→10:00)
[2016-12-09] MEDS: VERSED ONE ×3 (09:18→10:00)
[2016-12-09] MEDS: XYLOCAINE 2% INFILTRATI ONE ×2 (09:18→09:29)
[2016-12-09] MEDS: HEPARIN 10,000 UNITS/10 ML ONE ×3 (09:19→09:57)
[2016-12-09] MEDS: CALAN ONE ×2 (09:19→09:29)
[2016-12-09] MEDS: NACL 0.9% 500 ML 500 ML ONE ×2 (09:20→09:28)
[2016-12-09] MEDS: HEPARIN/NS 5000 UNIT/500ML(CATH LAB) 1,000 ML IR ONE ×2 (09:20→09:28)
[2016-12-09] MEDS ORDERED: NACL 0.9% 500 ML 500 ML ONE (09:58)
[2016-12-09] MEDS ORDERED: LASIX IV ONE (10:49)
--- NOTE | 2016-12-09 10:49 | Progress Note ---
Assessment and Plan Assessment: Acute diastolic heart failure - elevated LVEDP on [facility] CAD Abnormal EKG - incomplete LBBB NSTEMI type II Accelerated HTN Acute bronchitis Lung nodule HLP H/o atrial fibrillation, s/p ablation, anticoagulated with Eliquis H/o ASA allergy - causes anaphylaxis per pt report H/o hypothyroidism Obesity Plan: S/p LHC this AM which showed 50% mid LAD stenosis, elevated LVEDP. Initiate plavix 75mg daily and cont lipitor 40mg daily. Cont home Toprol XL, flecainide, hydralazine. Resume home Eliquis now. Give IV lasix now. On discharge, cont diuresis with PO lasix 40mg daily. Currently stable cardiac status. Possible d/c home this evening pending BPs are optimized and SOB improved. Follow up in our [place] office with Dr. Schaffer on 12/17/2016 @ 9:30AM. Assessment and plan reviewed with pt at bedside. The patient has been seen in conjunction with Dr. Gonzalez who agrees with the assessment and plan of care. Subjective Date of service: 12/09/16 Principal diagnosis: HF Interval history: pt for [facility] today Objective Last Vital Signs Temp 97.5 F L 12/09/16 05:23 Pulse 72 12/09/16 05:23 Resp 18 12/09/16 05:23 BP 175/70 12/09/16 05:23 Pulse Ox 96 12/09/16 09:30 - Physical Examination General: Appears Well HEENT: Positive: PERRL, Normocephaly, Mucus Membranes Moist Neck: Positive: neck supple, trachea midline Cardiac: Positive: Reg Rate and Rhythm, S1/S2 Lungs: Positive: Decreased Breath Sounds Neuro: Positive: Grossly Intact, Cranial Nerve 2-12 Intact Abdomen: Positive: Unremarkable, Soft, Active Bowel Sounds. Negative: Tender Skin: Positive: Clear. Negative: Rash, Wound Musculoskeletal: No Fluid Collection, No Pain, Normal Range of Motion Extremities: Absent: edema - Labs and Meds Coagulation 12/09/16 Range/Units 04:23 PT 14.1 (12.2-14.9) Sec. INR 1.04 (0.87-1.13) CBC 12/09/16 Range/Units 04:23 WBC 7.4 (4.5-11.0) K/mm3 RBC 6.49 H (3.65-5.03) M/mm3 Hgb 11.0 (10.1-14.3) gm/dl Hct 36.5 (30.3-42.9) % Plt Count 228 (140-440) K/mm3 Lymph # 1.2 (1.2-5.4) K/mm3 [place] # 0.2 (0.0-0.8) K/mm3 Eos # 0.0 (0.0-0.4) K/mm3 Baso # 0.0 (0.0-0.1) K/mm3 Comprehensive Metabolic Panel 12/09/16 Range/Units 04:23 Sodium 138 (137-145) mmol/L Potassium 4.6 (3.6-5.0) mmol/L Chloride 98.3 (98-107) mmol/L Carbon Dioxide 23 (22-30) mmol/L BUN 18 H (7-17) mg/dL Creatinine 0.7 (0.7-1.2) mg/dL Glucose 159 H (65-100) mg/dL Calcium 9.3 (8.4-10.2) mg/dL - Imaging and Cardiology EKG: report reviewed, image reviewed Echo: report reviewed (12/03/2016 showed EF 55-60%, mild LVH, LA mildly enlarged , trace MR. ) - EKG Sinus rhythms and dysrhythmias: sinus rhythm AV and intraventricular conduction: left bundle branch block (incomplete)
[2016-12-09] MEDS ORDERED: ELIQUIS PO SCH (11:00)
--- NOTE | 2016-12-09 11:20 | Discharge Summary ---
Providers - Providers Date of Admission: 12/07/16 19:43 Attending physician: KARY CASTELLANOS MD 12/08/16 10:33 Consult to Physician [CONS] Routine Consulting Provider: BRIANNA ROMAN Reason For Exam: lung nodule Place consult to:: pulmon Notified:: office Phone number called:: [phone] Was contact made?: Yes Time called:: 11:27 Primary care physician: ERICK DOCKERY Hospitalization Condition: Stable Hospital course: S/p LHC this AM which showed 50% mid LAD stenosis, elevated LVEDP. Initiate plavix 75mg daily and cont lipitor 40mg daily. Cont home Toprol XL, flecainide, hydralazine. Resume home Eliquis now. Give IV lasix now. On discharge, cont diuresis with PO lasix 40mg daily. Currently stable cardiac status. Possible d/c home this evening pending BPs are optimized and SOB improved. Follow up in our [place] office with Dr. Schaffer on 12/17/2016 @ 9:30AM. Assessment and plan reviewed with pt at bedside. The patient has been seen in conjunction with Dr. Gonzalez who agrees with the assessment and plan of care. Disposition: DC-01 TO HOME OR SELFCARE Time spent for discharge: 35 MINS Core Measure Documentation - Palliative Care Palliative Care/ Comfort Measures: Not Applicable - Core Measures Any of the following diagnoses?: none - VTE Discharge Requirements Deep Vein Thrombosis/Pulmonary Embolism Present on Admission: No Exam - Constitutional Vitals: Temp Pulse Resp BP Pulse Ox 97.5 F L 72 18 175/70 96 12/09/16 05:23 12/09/16 05:23 12/09/16 05:23 12/09/16 05:23 12/09/16 09:30 Plan Activity: advance as tolerated, fall precautions Diet: low fat, low salt Special Instructions: record daily weights, record daily BP diary Follow up with: ERICK DOCKERY MD [Primary Care Provider] - 3-5 Days PALLAVI SCHAFFER MD [Staff Physician] - 12/17/16 9:30 am Forms: CardCath PCI D/C Instructions Prescriptions: AtorvaSTATin [Lipitor] 40 mg PO QHS #30 tablet Apixaban [Eliquis] 5 mg PO Q12HR #30 tablet Benzonatate [Tessalon Perles] 100 mg PO Q8HR #14 capsule Clopidogrel [Plavix] 75 mg PO QDAY #30 tablet Doxycycline [Vibramycin CAP] 100 mg PO BID #10 capsule Furosemide [Lasix TAB] 40 mg PO QDAY #30 tablet hydrALAZINE [Apresoline TAB] 25 mg PO BID #30 tablet Metoprolol Xl [Metoprolol SUCCINATE ER TAB] 50 mg PO QDAY #30 tablet Nitroglycerin [Nitrostat] 0.4 mg SL Q5M PRN #30 tablet PRN Reason: Chest Pain Pantoprazole [Protonix TAB] 20 mg PO BID PRN #30 tablet. PRN Reason: DYSPEPSIA
--- NOTE | 2016-12-09 11:27 | Cardiac Catherization Report ---
CARDIAC CATHETERIZATION AND CORONARY INTERVENTION REPORT INDICATIONS: The patient is a 71-year-old white female with history of atrial fibrillation, status post ablation, presently on flecainide, presented with symptoms of shortness of breath with exertion and orthopnea suggestive of congestive heart failure. Troponin levels were mildly elevated up to 0.027. Considering her symptoms and previous history and abnormal cardiac enzymes, the patient is scheduled for cardiac catheterization and possible intervention. The patient is aware of the procedure, potential complications, and the alternatives of therapy available. DESCRIPTION OF PROCEDURE: The patient was brought to the catheterization laboratory in a fasting condition. The right wrist area and forearm thoroughly cleansed with Betadine solution. Sterile drapes were applied. Local anesthesia was achieved using 2% Xylocaine. Right radial arterial puncture was made using 21-gauge arterial puncture needle. Subsequently, a 5-Colombian sheath was introduced. The patient received 3000 units of intravenous heparin and 5 mg of intra-arterial verapamil. Using 5-Colombian multipurpose catheter, angiograms of the left ventricle was performed in REED projection. Subsequently, this catheter was exchanged with a 5-Colombian tiger catheter to obtain the angiograms of the left coronary artery and modified JR4 catheter was used to obtain the angiograms of the right coronary artery. At the end of the procedure, the patient was noted to have borderline mid LAD lesion. Hence, it was decided to proceed with performing fractional flow reserve measurement of this lesion. Hence, converted to interventional procedure. FRACTION FLOW RESERVE MEASUREMENT OF THE LAD: The patient has 50% distal LAD lesion just at the origin of the mid diagonal branch. This is 40-50%. The patient received extra dose of IV heparin 70 units per kg. Subsequently, EBU guiding catheter was advanced and engaged the left coronary artery. ETC Education pressure guidewire was set up in the standard fashion was zeroed and subsequently equalizing at the tip of the guide catheter. The patient received 100 mcg and 150 mcg of intracoronary adenosine. FFR was found to be only 0.97 suggesting this is not significant hemodynamically. Final angiogram showed no complications from the procedure. At the end of the procedure, catheter and sheath were removed. Good hemostasis was achieved with pressure bandage. Following findings were noted. HEMODYNAMICS: 1. Opening aortic pressure 197/93, left ventricular pressure 199/34. No gradient across the aortic valve. Estimated ejection fraction 55%. 2. Left ventriculogram done in REED projection showed normal size left ventricle with normal contractility. End-diastolic and systolic volumes were normal. Mitral regurgitation could not be evaluated. 3. Right coronary artery, dominant vessel arises normally from right coronary cusp. It is to be noted that aorta is uncoiled and difficult to selectively cannulate the RCA. However, RCA appears to be dominant vessel, angiographically smooth and normal. 4. Left coronary artery arises normally from left coronary cusp. Left main without significant disease. LAD shows 40-50% smooth lesion just up to the origin of the mid diagonal branch. Except for this lesion, the rest of the LAD and its branches are without significant disease. Circumflex artery and its marginal branch are without significant disease. FINAL IMPRESSION: Borderline mid LAD lesion with non-hemodynamically significant fractional flow reserve measurement, namely 0.97. Otherwise, rest of the coronaries are angiographically smooth and normal. PLAN: At this time, the patient will be continued on risk factor modification. The patient's systolic blood pressure is markedly elevated along with elevated end diastolic pressure. These findings are consistent with diastolic heart failure. Would continue medical therapy and risk factor modification. Discussed with Dr. Schaffer who is in the lab, evaluated the findings and explained to the patient. JOB# [id number] KALE/BHANU JOYNER
[2016-12-09 11:40] LABS: ISTAT Base Excess 1; ISTAT DEVICE 0; ISTAT HCO3 25.6; ISTAT PCO2 38.7 (35-45); ISTAT PH 7.429 (7.35-7.45); ISTAT PO2 65 (80-105); ISTAT SO2 93; ISTAT TCO2 27
[2016-12-09] MEDS: APRESOLINE PO SCH (12:05)
[2016-12-09] MEDS: VIBRAMYCIN PO SCH (12:06)
[2016-12-09] MEDS: TOPROL XL PO SCH (12:06)
[2016-12-09] MEDS: PLAVIX PO SCH ×2 (12:07→14:40)
[2016-12-09 18:49] VITALS: BP 142/80
[2016-12-10] MEDS ORDERED: LASIX PO SCH (11:00)
== END 2016-12-09 18:33 | disposition home or self-care (01) | DRG 286 ==
LOC: ED 15:47 → 4A 19:43
PROVIDERS: ADMIT Internal Medicine; ATTEND Internal Medicine
PROC: 4A033R1 Measurement of Arterial Saturation, Peripheral, Percutaneous Approach (ICD-10-PCS; principal; 2016-12-09)
PROC: 4A023N7 Measurement of Cardiac Sampling and Pressure, Left Heart, Percutaneous Approach (ICD-10-PCS; 2016-12-09)
PROC: B2111ZZ Fluoroscopy of Multiple Coronary Arteries using Low Osmolar Contrast (ICD-10-PCS; 2016-12-09)
PROC: B2151ZZ Fluoroscopy of Left Heart using Low Osmolar Contrast (ICD-10-PCS; 2016-12-09)
DX: I11.0 Hypertensive heart disease with heart failure (principal); J96.90 Respiratory failure, unspecified, unspecified whether with hypoxia or hypercapnia; I24.9 Acute ischemic heart disease, unspecified; I48.92 Unspecified atrial flutter; I50.31 Acute diastolic (congestive) heart failure; I48.91 Unspecified atrial fibrillation; I16.0 Hypertensive urgency; K21.9 Gastro-esophageal reflux disease without esophagitis; M19.90 Unspecified osteoarthritis, unspecified site; E66.9 Obesity, unspecified; E03.9 Hypothyroidism, unspecified; E78.5 Hyperlipidemia, unspecified; Z77.22 Contact with and (suspected) exposure to environmental tobacco smoke (acute) (chronic); J20.9 Acute bronchitis, unspecified; R91.1 Solitary pulmonary nodule; I44.7 Left bundle-branch block, unspecified; Z79.899 Other long term (current) drug therapy; Z88.6 Allergy status to analgesic agent; Z88.0 Allergy status to penicillin; Z88.2 Allergy status to sulfonamides; Z90.49 Acquired absence of other specified parts of digestive tract; Z68.36 Body mass index [BMI] 36.0-36.9, adult
CPT/HCPCS: 36415; 36600; 71020; 71275; 80048; 80061; 82803; 82962; 83880; 84439; 84443; 84484; 85025; 85379; 85610; 93005; 93010; 93458; 93571; 94640; 94760; A9270-GY; C1769; C1887; C1894; J0153; J1644; J1940; J2250; J2920; J3010; J7040; Q9967

== ENCOUNTER 2017-03-09 08:59 | Outpatient (CLI) | payer MEDICARE ==
[2017-03-09] MEDS ORDERED: PROVENTIL IH ONE (10:27)
== END 2017-03-09 09:00 | disposition home or self-care (01) ==
LOC: PF 08:59
PROVIDERS: ATTEND Internal Medicine
DX: R06.02 Shortness of breath (principal)
CPT/HCPCS: 94060; 94640; 94726; 94729

== ENCOUNTER 2018-05-08 19:46 | Inpatient (IN) | payer MEDICARE ==
--- NOTE | 2018-05-08 20:49 | Emergency Department Report ---
Blank Doc - Documentation Documentation: 73 y/o female with JOSIAH chest congestion, cough,
[2018-05-08 21:19] LABS: Albumin 4.1 g/dL (3.9-5); BUN/Creatinine Ratio 24; Blood Urea Nitrogen 19 mg/dL (7-17); Calcium 9.4 mg/dL (8.4-10.2); Hemolysis Index 224
--- NOTE | 2018-05-08 21:32 | XRay Report ---
PROCEDURE: XR CHEST ROUTINE 2V TECHNIQUE: Chest radiograph single view. HISTORY: JOSIAH, SOB wheezing COMPARISONS: 12/31/2017 . FINDINGS: Heart: Cardiac size is upper limit of normal. Mediastinum/Vessels: Normal. Lungs/Pleural space: Lungs are hyperinflated. There are no confluent infiltrates or mass lesions. Pl eural spaces are clear.. Bony thorax: No acute osseous abnormality. Life support devices: None. IMPRESSION: COPD No acute pulmonary process. This document is electronically signed by Flo Claros MD., May 08 2018 09:30:23 PM ET
[2018-05-08 21:34] LABS: Alanine Aminotransferase 28 units/L (7-56)
[2018-05-08] MEDS ORDERED: ATROVENT IH ONE (22:04)
[2018-05-08] MEDS ORDERED: LEVAQUIN PO ONE (22:04)
[2018-05-08] MEDS ORDERED: PROVENTIL IH ONE (22:04)
[2018-05-08] MEDS ORDERED: SOLU-Medrol IV ONE (22:04)
--- NOTE | 2018-05-08 22:11 | Emergency Department Report ---
ED Shortness of Breath HPI - General Chief Complaint: Dyspnea/Respdistress Stated Complaint: DIFFICULTY IN BREATHING Time Seen by Provider: 05/08/18 21:56 Source: patient Mode of arrival: Ambulatory Limitations: No Limitations - History of Present Illness Initial Comments: Mrs. Mcdaniels is a 72 yo female with hx of Atrial fibrillaiton on Eliquia, CAD, hypothyroidism, GERD, HTN, dysplidemia who presents with 3 days of chest congestion, cough, wheezing since . +chills +malaise In December treated for bronchospasm, PNA, sepsis and reactive airway syndrome. Has lived with smokers. Has lived in [place] for 9 years from [place]. Seasonal allergies have worsened. She had pulmonology evaluation during hospitalization last winter. She explains to me that "Albuterol does not work". 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 MD Complaint: shortness of breath, cough -: days(s) (3) Severity: moderate Consistency: constant Improves With: upright position Worsens With: exertion Known History Of: recurrent pnemonia (3 times), other Context: recent URI, allergen exposure, smoke/fume exposure Associated Symptoms: cough, other (wheezing) - Related Data Home Medications Medication Instructions Recorded Confirmed Last Taken Levothyroxine [Synthroid] 75 mcg PO QAM 01/31/15 01/01/18 12/31/17 Flecainide [Tambocor] 100 mg PO Q12H 12/07/16 01/01/18 12/31/17 Previous Rx's Medication Instructions Recorded Last Taken Type Apixaban [Eliquis] 5 mg PO Q12HR #30 tablet 12/09/16 12/31/17 Rx AtorvaSTATin [Lipitor] 40 mg PO QHS #30 tablet 12/09/16 12/31/17 Rx Clopidogrel [Plavix] 75 mg PO QDAY #30 tablet 12/09/16 12/31/17 Rx Furosemide [Lasix TAB] 40 mg PO QDAY #30 tablet 12/09/16 12/31/17 Rx Metoprolol Xl [Metoprolol 50 mg PO QDAY #30 tablet 12/09/16 12/31/17 Rx SUCCINATE ER TAB] hydrALAZINE [Apresoline TAB] 25 mg PO BID #30 tablet 12/09/16 12/31/17 Rx Acetaminophen [Acetaminophen TAB] 650 mg PO Q6H PRN #15 tablet 01/04/18 Unknown Rx Benzonatate [Tessalon Perles] 100 mg PO Q8HR PRN #14 capsule 01/04/18 12/31/17 Rx Budesonide [Pulmicort] 0.5 mg IH Q12HR #60 nebu 01/04/18 Unknown Rx Ipratropium/Albuterol Sulfate 1 ampul IH Q4HR PRN #30 ampul.rene 01/04/18 Unknown Rx [DUONEB *Not for PRN Use*] Pantoprazole [Protonix TAB] 20 mg PO QDAY PRN #30 tablet. 01/04/18 12/31/17 Rx levoFLOXacin [Levaquin TAB] 750 mg PO QHS #2 tablet 01/04/18 Unknown Rx Allergies Allergy/AdvReac Type Severity Reaction Status Date / Time aspirin Allergy Anaphylaxis Verified 12/20/14 10:08 NSAIDS (Non-Steroidal Allergy Anaphylaxis Verified 12/20/14 10:08 Anti-Inflamma Penicillins Allergy Hives Verified 12/20/14 10:08 prochlorperazine Allergy Unknown Verified 12/20/14 10:08 [From Compazine] prochlorperazine edisylate Allergy Unknown Verified 12/20/14 10:08 [From Compazine] prochlorperazine maleate Allergy Unknown Verified 12/20/14 10:08 [From Compazine] Sulfa (Sulfonamide Allergy Hives Verified 12/20/14 10:08 Antibiotics) ED Review of Systems ROS: Stated complaint: DIFFICULTY IN BREATHING Other details as noted in HPI Comment: All other systems reviewed and negative Constitutional: chills, malaise Respiratory: cough, shortness of breath, SOB at rest, wheezing ED Past Medical Hx - Past Medical History Previous Medical History?: Yes Hx Hypertension: Yes Hx Congestive Heart Failure: Yes (mild) Hx GERD: Yes Hx Arthritis: Yes Additional medical history: a-fib, Pneumonia - Surgical History Past Surgical History?: Yes Hx Cholecystectomy: Yes Hx Appendectomy: Yes Additional Surgical History: hysterectomy,bilateral total knee,right shoulder fx - Social History Smoking Status: Never Smoker Substance Use Type: None - Medications Home Medications: Home Medications Medication Instructions Recorded Confirmed Last Taken Type Levothyroxine [Synthroid] 75 mcg PO QAM 01/31/15 01/01/18 12/31/17 History Flecainide [Tambocor] 100 mg PO Q12H 12/07/16 01/01/18 12/31/17 History Apixaban [Eliquis] 5 mg PO Q12HR #30 tablet 12/09/16 01/01/18 12/31/17 Rx AtorvaSTATin [Lipitor] 40 mg PO QHS #30 tablet 12/09/16 01/01/18 12/31/17 Rx Clopidogrel [Plavix] 75 mg PO QDAY #30 tablet 12/09/16 01/01/18 12/31/17 Rx Furosemide [Lasix TAB] 40 mg PO QDAY #30 tablet 12/09/16 01/01/18 12/31/17 Rx Metoprolol Xl [Metoprolol 50 mg PO QDAY #30 tablet 12/09/16 01/01/18 12/31/17 Rx SUCCINATE ER TAB] hydrALAZINE [Apresoline TAB] 25 mg PO BID #30 tablet 12/09/16 01/01/18 12/31/17 Rx Acetaminophen [Acetaminophen TAB] 650 mg PO Q6H PRN #15 tablet 01/04/18 Unknown Rx Benzonatate [Tessalon Perles] 100 mg PO Q8HR PRN #14 capsule 01/04/18 01/01/18 12/31/17 Rx Budesonide [Pulmicort] 0.5 mg IH Q12HR #60 nebu 01/04/18 Unknown Rx Ipratropium/Albuterol Sulfate 1 ampul IH Q4HR PRN #30 ampul.neb 01/04/18 Unknown Rx [DUONEB *Not for PRN Use*] Pantoprazole [Protonix TAB] 20 mg PO QDAY PRN #30 tablet. 01/04/18 01/01/18 12/31/17 Rx levoFLOXacin [Levaquin TAB] 750 mg PO QHS #2 tablet 01/04/18 Unknown Rx ED Physical Exam - General Limitations: No Limitations General appearance: alert, in no apparent distress, other (speaking with effort, full sentences but becomes out of breath easily) - Head Head exam: Present: atraumatic, normocephalic - Eye Eye exam: Present: normal appearance - ENT ENT exam: Present: mucous membranes moist - Neck Neck exam: Present: normal inspection - Respiratory Respiratory exam: Present: wheezes, decreased breath sounds, prolonged expiratory. Absent: rales, rhonchi, stridor, accessory muscle use - Cardiovascular Cardiovascular Exam: Present: regular rate, normal rhythm, normal heart sounds. Absent: systolic murmur, diastolic murmur, rubs, gallop - GI/Abdominal GI/Abdominal exam: Present: soft, normal bowel sounds. Absent: distended, tenderness, guarding, rebound - Extremities Exam Extremities exam: Present: normal inspection - Back Exam Back exam: Present: normal inspection - Neurological Exam Neurological exam: Present: alert, oriented X3 - Psychiatric Psychiatric exam: Present: normal affect, normal mood - Skin Skin exam: Present: warm, dry, intact, normal color. Absent: rash ED Course Vital Signs 05/08/18 05/08/18 05/08/18 19:53 22:10 22:16 Temperature 98.9 F Pulse Rate 86 89 76 Pulse Rate [ Anterior Bilateral] Respiratory 18 21 19 Rate Respiratory Rate [Anterior Bilateral] Blood Pressure 178/83 Blood Pressure [Left] O2 Sat by Pulse 93 96 97 Oximetry 05/08/18 05/08/18 05/08/18 22:18 22:23 22:30 Temperature Pulse Rate 80 Pulse Rate [ 86 Anterior Bilateral] Respiratory 15 Rate Respiratory 18 Rate [Anterior Bilateral] Blood Pressure Blood Pressure 181/72 [Left] O2 Sat by Pulse 97 Oximetry 05/08/18 05/08/18 05/08/18 22:46 23:00 23:15 Temperature Pulse Rate 79 102 H Pulse Rate [ Anterior Bilateral] Respiratory 20 20 Rate Respiratory Rate [Anterior Bilateral] Blood Pressure Blood Pressure 130/60 [Left] O2 Sat by Pulse 96 96 Oximetry 05/08/18 05/08/18 23:16 23:30 Temperature Pulse Rate 91 H 95 H Pulse Rate [ Anterior Bilateral] Respiratory 21 22 Rate Respiratory Rate [Anterior Bilateral] Blood Pressure 130/60 154/67 Blood Pressure [Left] O2 Sat by Pulse 95 93 Oximetry ED Medical Decision Making - Lab Data Result diagrams: 05/08/18 22:42 05/08/18 20:48 - EKG Data 05/08/18 23:49 EKG obtained 2028 Normal sinus rhythm rate 75 bpm normal axis normal intervals no significant ST elevation. No signs of ischemia Q waves in anterior leads - Medical Decision Making Mrs. Mcdaniels is a very pleasant 73-year-old female who presents with cough, chest congestion, shortness of breath and wheezing. She did have wheezing on exam with decreased air movement. I reviewed radiology report: Findings of COPD with hyperinflated lungs distally impression. No evidence of infiltrate or pneumothorax. CBC chemistry within normal limits. I suspect hemolyzed potassium at 5.8 with normal BUN/creatinine. Repeat potassium is not indicated in this setting. Mrs. Mcdaniels was treated with IV steroids, by mouth antibiotics and nebulizer therapy with minimal improvement.. Still requires oxygen at rest. 92% oxygen saturation at rest with mouth breathing evening sitting upright in stretcher. Admitted to hospitalist service in fair condition. Critical care attestation.: If time is entered above; I have spent that time in minutes in the direct care of this critically ill patient, excluding procedure time. ED Disposition Clinical Impression: Acute respiratory failure with hypoxia, Reactive airway disease with wheezing with acute exacerbation Disposition: OP ADMIT IP TO THIS HOSP Is pt being admited?: Yes Does the pt Need Aspirin: No Condition: Stable
[2018-05-08 22:14] LABS: Eosinophils % (Auto) TNR % (0.0-4.3); Hematocrit TNR % (30.3-42.9); Hemoglobin TNR gm/dl (10.1-14.3); Lymphocytes % (Auto) TNR % (13.4-35.0); Mean Corpuscular HGB Conc TNR % (30-34); Mean Corpuscular Volume TNR fl (79-97); Mean Platelet Volume TNR fl (6-12); Monocytes % (Auto) TNR % (0.0-7.3); Platelet Count TNR K/mm3 (140-440); Red Blood Count TNR M/mm3 (3.65-5.03); Red Cell Distribution Width TNR % (13.2-15.2)
[2018-05-08 22:15] LABS: Basophils # (Auto) TNR K/mm3 (0.0-0.1); Basophils % (Auto) TNR % (0.0-1.8); Eosinophils # (Auto) TNR K/mm3 (0.0-0.4); Lymphocytes # (Auto) TNR K/mm3 (1.2-5.4); Monocytes # (Auto) TNR K/mm3 (0.0-0.8)
[2018-05-08 22:56] LABS: Basophils # (Auto) 0.1 K/mm3 (0.0-0.1); Basophils % (Auto) 0.6 % (0.0-1.8); Eosinophils # (Auto) 0.3 K/mm3 (0.0-0.4); Eosinophils % (Auto) 3.7 % (0.0-4.3); Hematocrit 35.9 % (30.3-42.9); Hemoglobin 11.4 gm/dl (10.1-14.3); Lymphocytes # (Auto) 2.7 K/mm3 (1.2-5.4); Mean Corpuscular HGB Conc 32 % (30-34); Monocytes # (Auto) 1.1 K/mm3 (0.0-0.8); Monocytes % (Auto) 11.4 % (0.0-7.3); Platelet Count 220 K/mm3 (140-440); Red Blood Count 6.27 M/mm3 (3.65-5.03); Red Cell Distribution Width 16.9 % (13.2-15.2)
[2018-05-08 23:02] LABS: Mean Corpuscular Volume 57 fl (79-97)
[2018-05-09] MEDS ORDERED: MILK OF MAGNESIA PO PRN (00:49)
[2018-05-09] MEDS ORDERED: NORCO 5/325 PO PRN (00:49)
[2018-05-09] MEDS ORDERED: SODIUM CHLORIDE FLUSH SYRINGE 10 ML IV PRN (00:49)
[2018-05-09] MEDS ORDERED: ZOFRAN IV PRN (00:49)
[2018-05-09] MEDS ORDERED: MORPHINE IV PRN (00:49)
[2018-05-09] MEDS ORDERED: KIONEX PO ONE (00:51)
[2018-05-09] MEDS ORDERED: KIONEX ONE (01:16)
--- NOTE | 2018-05-09 02:00 | History and Physical Report ---
History of Present Illness Date of examination: 05/09/18 Date of admission: 05/09/18 00:49 Chief complaint: Shortness of breath History of present illness: Patient is a 73-year-old female with history of Atrial fibrillation who presented to the ED on account of one-day history of shortness of breath. She has associated cough productive of yellowish sputum, chills without fever, chest tightness, palpitation, headaches, runny nose and lightheadedness. She denies diaphoresis, sore throat, nausea, vomiting, syncope or loss of consciousness. She has chronic bilateral leg swelling but no orthopnea or PND. No abdominal pain, constipation, diarrhea, dysuria or frequency. No reported history of ill contacts Past History Past Medical History: CAD, hypertension, hyperlipidemia, hypothyroidism, other (atrial fibrillation) Past Surgical History: cholecystectomy, total knee replacement (bilateral), Other (cardioversion, right shoulder surgery, uterus removal) Social history: no significant social history (patient denies tobacco, alcohol or illicit drug use) Family history: other (reviewed and noncontributory) Medications and Allergies Allergies Allergy/AdvReac Type Severity Reaction Status Date / Time aspirin Allergy Anaphylaxis Verified 12/20/14 10:08 NSAIDS (Non-Steroidal Allergy Anaphylaxis Verified 12/20/14 10:08 Anti-Inflamma Penicillins Allergy Hives Verified 12/20/14 10:08 prochlorperazine Allergy Unknown Verified 12/20/14 10:08 [From Compazine] prochlorperazine edisylate Allergy Unknown Verified 12/20/14 10:08 [From Compazine] prochlorperazine maleate Allergy Unknown Verified 12/20/14 10:08 [From Compazine] Sulfa (Sulfonamide Allergy Hives Verified 12/20/14 10:08 Antibiotics) Home Medications Medication Instructions Recorded Confirmed Last Taken Type Levothyroxine [Synthroid] 75 mcg PO QAM 01/31/15 01/01/18 12/31/17 History Flecainide [Tambocor] 100 mg PO Q12H 12/07/16 01/01/18 12/31/17 History Apixaban [Eliquis] 5 mg PO Q12HR #30 tablet 12/09/16 01/01/18 12/31/17 Rx AtorvaSTATin [Lipitor] 40 mg PO QHS #30 tablet 12/09/16 01/01/18 12/31/17 Rx Clopidogrel [Plavix] 75 mg PO QDAY #30 tablet 12/09/16 01/01/18 12/31/17 Rx Furosemide [Lasix TAB] 40 mg PO QDAY #30 tablet 12/09/16 01/01/18 12/31/17 Rx Metoprolol Xl [Metoprolol 50 mg PO QDAY #30 tablet 12/09/16 01/01/18 12/31/17 Rx SUCCINATE ER TAB] hydrALAZINE [Apresoline TAB] 25 mg PO BID #30 tablet 12/09/16 01/01/18 12/31/17 Rx Acetaminophen [Acetaminophen TAB] 650 mg PO Q6H PRN #15 tablet 01/04/18 Unknown Rx Benzonatate [Tessalon Perles] 100 mg PO Q8HR PRN #14 capsule 01/04/18 01/01/18 12/31/17 Rx Budesonide [Pulmicort] 0.5 mg IH Q12HR #60 nebu 01/04/18 Unknown Rx Ipratropium/Albuterol Sulfate 1 ampul IH Q4HR PRN #30 ampul.neb 01/04/18 Unknown Rx [DUONEB *Not for PRN Use*] Pantoprazole [Protonix TAB] 20 mg PO QDAY PRN #30 tablet. 01/04/18 01/01/18 12/31/17 Rx levoFLOXacin [Levaquin TAB] 750 mg PO QHS #2 tablet 01/04/18 Unknown Rx Active Meds: Active Medications Acetaminophen (Tylenol) 650 mg PO Q4H PRN PRN Reason: Pain MILD(1-3)/Fever >100.5/CHUA Acetaminophen/Hydrocodone Bitart ([place] 5/325) 1 each PO Q4H PRN PRN Reason: Pain, Moderate (4-6) Enoxaparin Sodium (Lovenox) 40 mg SUB-Q QDAY MINDI Magnesium Hydroxide (Milk Of Magnesia) 30 ml PO Q4H PRN PRN Reason: Constipation Morphine Sulfate (Morphine) 2 mg IV Q4H PRN PRN Reason: Pain, Moderate (4-6) Ondansetron HCl (Zofran) 4 mg IV Q8H PRN PRN Reason: Nausea And Vomiting Sodium Chloride (Sodium Chloride Flush Syringe 10 Ml) 10 ml IV BID MINDI Sodium Chloride (Sodium Chloride Flush Syringe 10 Ml) 10 ml IV PRN PRN PRN Reason: LINE FLUSH Review of Systems All systems: negative (except as documented in the HPI, all other systems were reviewed and negative) Exam - Constitutional Vitals: Temp Pulse Resp BP Pulse Ox 98.9 F 88 15 158/66 94 05/08/18 19:53 05/09/18 00:15 05/09/18 00:15 05/09/18 00:15 05/09/18 00:15 General appearance: Present: no acute distress - EENT Eyes: Present: PERRL, EOM intact ENT: hearing intact, clear oral mucosa - Neck Neck: Present: supple, normal ROM - Respiratory Respiratory effort: normal Respiratory: bilateral: CTA, diminished - Cardiovascular Rhythm: regular Heart Sounds: Present: S1 & S2. Absent: rub, click - Extremities Extremity abnormal: edema (trace edema in bilateral lower extremities) Peripheral Pulses: within normal limits - Abdominal General gastrointestinal: Present: soft, non-tender, non-distended, normal bowel sounds Female genitourinary: Present: deferred - Integumentary Integumentary: Present: clear, warm, dry - Musculoskeletal Musculoskeletal: gait normal, strength equal bilaterally - Psychiatric Psychiatric: appropriate mood/affect, intact judgment & insight - Neurologic Neurologic: CNII-XII intact, moves all extremities Results - Labs CBC & Chem 7: 05/08/18 22:42 05/08/18 20:48 Labs: Laboratory Last Values WBC 9.4 K/mm3 (4.5-11.0) 05/08/18 22:42 RBC 6.27 M/mm3 (3.65-5.03) H 05/08/18 22:42 Hgb 11.4 gm/dl (10.1-14.3) 05/08/18 22:42 Hct 35.9 % (30.3-42.9) 05/08/18 22:42 MCV 57 fl (79-97) L 05/08/18 22:42 MCH 18 pg (28-32) L 05/08/18 22:42 MCHC 32 % (30-34) 05/08/18 22:42 RDW 16.9 % (13.2-15.2) H 05/08/18 22:42 Plt Count 220 K/mm3 (140-440) 05/08/18 22:42 Lymph % (Auto) 29.0 % (13.4-35.0) 05/08/18 22:42 [place] % (Auto) 11.4 % (0.0-7.3) H 05/08/18 22:42 Eos % (Auto) 3.7 % (0.0-4.3) 05/08/18 22:42 Baso % (Auto) 0.6 % (0.0-1.8) 05/08/18 22:42 Lymph # 2.7 K/mm3 (1.2-5.4) 05/08/18 22:42 [place] # 1.1 K/mm3 (0.0-0.8) H 05/08/18 22:42 Eos # 0.3 K/mm3 (0.0-0.4) 05/08/18 22:42 Baso # 0.1 K/mm3 (0.0-0.1) 05/08/18 22:42 Add Manual Diff TNR 05/08/18 20:48 Seg Neutrophils % 55.3 % (40.0-70.0) 05/08/18 22:42 Seg Neutrophils # 5.2 K/mm3 (1.8-7.7) 05/08/18 22:42 Sodium 137 mmol/L (137-145) 05/08/18 20:48 Potassium 5.8 mmol/L (3.6-5.0) H 05/08/18 20:48 Chloride 103.1 mmol/L (98-107) 05/08/18 20:48 Carbon Dioxide 22 mmol/L (22-30) 05/08/18 20:48 Anion Gap 18 mmol/L 05/08/18 20:48 BUN 19 mg/dL (7-17) H 05/08/18 20:48 Creatinine 0.8 mg/dL (0.7-1.2) 05/08/18 20:48 Estimated GFR > 60 ml/min 05/08/18 20:48 BUN/Creatinine Ratio 24 % 05/08/18 20:48 Glucose 101 mg/dL (65-100) H 05/08/18 20:48 Calcium 9.4 mg/dL (8.4-10.2) 05/08/18 20:48 Total Bilirubin 0.50 mg/dL (0.1-1.2) 05/08/18 20:48 AST 71 units/L (5-40) H 05/08/18 20:48 ALT 28 units/L (7-56) 05/08/18 20:48 Alkaline Phosphatase 70 units/L (35-129) 05/08/18 20:48 NT-Pro-B Natriuret Pep 549.2 pg/mL (0-900) 05/08/18 20:48 Total Protein 6.5 g/dL (6.3-8.2) 05/08/18 20:48 Albumin 4.1 g/dL (3.9-5) 05/08/18 20:48 Albumin/Globulin Ratio 1.7 % 05/08/18 20:48 Assessment and Plan Assessment and plan: New COPD with acute exacerbation -Probably secondary to acute bronchitis -On IV steroid, antibiotic and nebulizer breathing treatments Hyperkalemia -Kayexalate given, will monitor level Atrial fibrillation -Status post cardioversion -Heart rate controlled -Continue home oral anticoagulation with eliquis Hypertension -Uncontrolled, resume home meds Hypothyroidism -Continue synthroid HLD -Continue statin CAD -Stable, resume home meds Obesity with BMI of 36 -Lifestyle modification recommended Disposition: For discharge when medically stable Time spent: 38 minutes
[2018-05-09] MEDS ORDERED: DUONEB *Not for PRN Use IH SCH (04:00)
[2018-05-09] MEDS: DUONEB *Not for PRN Use IH SCH ×4 (04:37→19:58)
[2018-05-09] MEDS: SOLU-Medrol IV SCH ×3 (05:56→22:29)
[2018-05-09] MEDS: TYLENOL PO PRN ×2 (06:03→14:27)
[2018-05-09 07:10] LABS: BUN/Creatinine Ratio 30; Blood Urea Nitrogen 18 mg/dL (7-17); Calcium 9.1 mg/dL (8.4-10.2); Hemolysis Index 0
[2018-05-09] MEDS: SODIUM CHLORIDE FLUSH SYRINGE 10 ML IV SCH ×2 (09:56→22:31)
[2018-05-09] MEDS: ZITHROMAX 500 MG in NACL 0.9% 250ML 250 ML IV SCH (09:56)
[2018-05-09] MEDS ORDERED: LOVENOX SUB-Q SCH (10:00)
[2018-05-09] MEDS ORDERED: TOPROL XL PO SCH (10:00)
--- NOTE | 2018-05-09 13:07 | Event Note ---
Date: 05/09/18 Patient seen and examined. Shortness of breath improved. Hypokalemia resolved. We'll continue with current management and plan
[2018-05-09] MEDS ORDERED: TESSALON PERLES PO PRN (14:43)
[2018-05-09] MEDS: TOPROL XL PO SCH (18:07)
[2018-05-09] MEDS: APRESOLINE PO SCH ×2 (18:07→22:30)
[2018-05-09] MEDS: PLAVIX PO SCH (18:07)
[2018-05-09] MEDS: LASIX PO SCH (18:08)
[2018-05-09] MEDS: ELIQUIS PO SCH ×2 (18:08→22:46)
[2018-05-09] MEDS: TAMBOCOR PO SCH (19:12)
[2018-05-09] MEDS: PULMICORT IH SCH ×2 (19:58→22:17)
[2018-05-09] MEDS ORDERED: PROVENTIL IH PRN (22:28)
[2018-05-09] MEDS: LEVAQUIN PO SCH (22:30)
[2018-05-10] MEDS: TAMBOCOR PO SCH ×2 (03:02→14:37)
[2018-05-10] MEDS: ELIQUIS PO SCH ×2 (06:16→17:39)
[2018-05-10] MEDS: SOLU-Medrol IV SCH ×3 (06:16→22:02)
[2018-05-10] MEDS: DUONEB *Not for PRN Use IH SCH ×3 (08:50→22:35)
[2018-05-10] MEDS: PULMICORT IH SCH ×3 (08:50→22:36)
[2018-05-10] MEDS: TOPROL XL PO SCH (09:03)
[2018-05-10] MEDS: SYNTHROID PO SCH (09:03)
[2018-05-10] MEDS ORDERED: TAMBOCOR PO SCH (09:05)
[2018-05-10] MEDS: LASIX PO SCH ×2 (09:09→10:35)
[2018-05-10] MEDS: APRESOLINE PO SCH ×2 (09:09→22:01)
[2018-05-10] MEDS: PLAVIX PO SCH (09:09)
[2018-05-10] MEDS: ZITHROMAX 500 MG in NACL 0.9% 250ML 250 ML IV SCH (09:17)
[2018-05-10] MEDS: SODIUM CHLORIDE FLUSH SYRINGE 10 ML IV SCH ×2 (09:17→22:03)
--- NOTE | 2018-05-10 17:31 | Progress Note ---
Assessment and Plan New COPD with acute exacerbation -Probably secondary to acute bronchitis -On IV steroid, antibiotic and nebulizer breathing treatments BNP 549 Hyperkalemia - corrected -Kayexalate given, will monitor level Metabolic acidosis - NaHco3 I ample Atrial fibrillation -Status post cardioversion -Heart rate controlled -Continue home oral anticoagulation with eliquis Hypertension -Uncontrolled, resume home meds Hypothyroidism -Continue synthroid HLD -Continue statin CAD -Stable, resume home meds Obesity with BMI of 36 -Lifestyle modification recommended Disposition: For discharge when medically stable Time spent: 35 minutes Subjective Date of service: 05/10/18 Principal diagnosis: COPD exacerbation, atrial fibrillation, hyperkalemia, hypertension, CAD, Interval history: shortness of breath improved. Denies any chest pain. No orthopnea. No fever. Sitting out of bed on a chair in the room Objective - Exam Narrative Exam: Constitutional: Well-nourished well-developed. In no distress Head: Normocephalic atraumatic Eyes: Pupils are equal round and reactive to light Nose: No enlarged turbinates, no septal deviation. Mouth: Moist mucous membranes. Neck: Supple no thyromegaly. No bruit. No JVD Heart: Regular rate and rhythm, S1-S2 normal. No rubs murmurs or gallop Lungs: Decreased to auscultation bilaterally. no rales or rhonchi Abdomen: Soft, nontender. Bowel sound are present. Extremities: No edema, no cyanosis, no clubbing. Neuro: Alert oriented Oriented x3. No focal sensory or motor deficit. Skin: No rashes or hyperpigmented spots Musculoskeletal system: No joint pain or swelling Hematological: No petechia or subcutanous hemorrhages. Immunological: No multiple septic spots on the skin Lymphatic: No generalized lymphadenopathy Psychiatry: Euthymic. Calm. - Constitutional Vitals: Vital Signs - 12hr 05/10/18 05/10/18 05/10/18 08:04 08:05 08:10 Temperature 97.4 F L 97.4 F L Pulse Rate 75 75 77 Pulse Rate [ Anterior Bilateral Throughout] Pulse Rate [ From Monitor] Respiratory 20 20 Rate Respiratory Rate [Anterior Bilateral Throughout] Blood Pressure 148/57 Blood Pressure 148/57 [Left] O2 Sat by Pulse 95 95 94 Oximetry 05/10/18 05/10/18 05/10/18 08:50 09:00 09:09 Temperature Pulse Rate 77 Pulse Rate [ 76 88 Anterior Bilateral Throughout] Pulse Rate [ From Monitor] Respiratory Rate Respiratory 18 18 Rate [Anterior Bilateral Throughout] Blood Pressure 165/73 Blood Pressure [Left] O2 Sat by Pulse Oximetry 05/10/18 05/10/18 05/10/18 10:00 13:48 15:16 Temperature 97.7 F Pulse Rate 93 H 83 Pulse Rate [ 80 Anterior Bilateral Throughout] Pulse Rate [ 93 H From Monitor] Respiratory 18 Rate Respiratory 18 Rate [Anterior Bilateral Throughout] Blood Pressure 165/72 Blood Pressure [Left] O2 Sat by Pulse 96 95 Oximetry 05/10/18 15:26 Temperature Pulse Rate Pulse Rate [ 92 H Anterior Bilateral Throughout] Pulse Rate [ From Monitor] Respiratory Rate Respiratory 20 Rate [Anterior Bilateral Throughout] Blood Pressure Blood Pressure [Left] O2 Sat by Pulse Oximetry - Labs CBC & Chem 7: 05/08/18 22:42 05/09/18 06:09
[2018-05-10] MEDS ORDERED: TYLENOL PO PRN (17:32)
[2018-05-10] MEDS: DEEP SEA NS SCH ×2 (17:39→22:00)
[2018-05-10] MEDS ORDERED: LASIX PO SCH (18:00)
[2018-05-10] MEDS ORDERED: DEEP SEA NS SCH (20:00)
[2018-05-10] MEDS ORDERED: TOPROL XL PO SCH ×2 (22:00)
[2018-05-10] MEDS: LEVAQUIN PO SCH (22:01)
[2018-05-11] MEDS: TAMBOCOR PO SCH ×2 (03:49→14:28)
[2018-05-11] MEDS: ELIQUIS PO SCH (05:56)
[2018-05-11] MEDS: LASIX PO SCH (05:57)
[2018-05-11] MEDS: SOLU-Medrol IV SCH ×2 (05:57→14:28)
[2018-05-11] MEDS: PLAVIX PO SCH (08:59)
[2018-05-11] MEDS: APRESOLINE PO SCH (08:59)
[2018-05-11] MEDS: SYNTHROID PO SCH (09:00)
[2018-05-11] MEDS: DEEP SEA NS SCH ×2 (09:01→14:28)
[2018-05-11] MEDS: SODIUM CHLORIDE FLUSH SYRINGE 10 ML IV SCH (09:02)
[2018-05-11] MEDS: DUONEB *Not for PRN Use IH SCH ×2 (09:21→15:03)
[2018-05-11] MEDS: PULMICORT IH SCH (09:21)
[2018-05-11] MEDS ORDERED: ZITHROMAX PO SCH (10:00)
--- NOTE | 2018-05-11 14:42 | Discharge Summary ---
Providers - Providers Date of Admission: 05/09/18 00:49 Attending physician: SUSANNAH RAMEY MD 05/11/18 07:39 Physical Therapy Evaluation and Treat [CONS] Routine Comment: Reason For Exam: weakness Primary care physician: CLINICAL REGISTERED NURSE Hospitalization Condition: Stable Hospital course: 72-year-old woman with history of atrial fibrillation on coagulation, CAD, hypothyroid, GERD, hypertension who presented with 3 days of chest congestion, cough wheezing. The patient had been treated for bronchospasm in December 2017. She lives with multiple smokers. The patient was treated for exacerbation of bronchitis/reactive airway disease. She received Kayexalate for hyperkalemia, improved. Current medications optimize for atrial fibrillation , She was continued on blood thinners [place] shows continued on the rest of her home medications She was treated with steroids and nebulizers and received respiratory therapy treatments. The patient clinically improved and was subsequently discharged -The patient's has been recommended to follow-up with her medical coordinator pesticide use, she will need pulmonary function tests when she is clinically improved. Diagnoses Acute exacerbation of reactive airway disease, likely recent onset COPD Acute respiratory failure Hyperkalemia Metabolic acidosis Atrial fibrillation with hypercoagulable state Hypertension Hypothyroidism Hyperlipidemia CAD Obesity with BMI of 36 Disposition: DC-01 TO HOME OR SELFCARE Time spent for discharge: 35 minutes Core Measure Documentation - Palliative Care Palliative Care/ Comfort Measures: Not Applicable - Core Measures Any of the following diagnoses?: none Exam - Constitutional Vitals: Temp Pulse Resp BP Pulse Ox 97.4 F L 99 H 20 149/80 92 05/11/18 07:28 05/11/18 10:00 05/11/18 10:00 05/11/18 08:59 05/11/18 10:00 General appearance: Present: no acute distress, well-nourished - EENT Eyes: Present: PERRL ENT: hearing intact, clear oral mucosa - Neck Neck: Present: supple, normal ROM - Respiratory Respiratory effort: normal Respiratory: bilateral: CTA - Cardiovascular Heart Sounds: Present: S1 & S2. Absent: rub, click - Extremities Extremities: pulses symmetrical, No edema Peripheral Pulses: within normal limits - Abdominal General gastrointestinal: Present: soft, non-tender, non-distended, normal bowel sounds Female genitourinary: Present: normal - Integumentary Integumentary: Present: clear, warm, dry - Musculoskeletal Musculoskeletal: gait normal, strength equal bilaterally - Psychiatric Psychiatric: appropriate mood/affect, intact judgment & insight - Neurologic Neurologic: CNII-XII intact, moves all extremities Plan Follow up with: PRIMARY CARE, [Primary Care Provider] - 7 Days OSCAR PATEL MD [Staff Physician] - 7 Days Prescriptions: Fluticasone/Salmeterol [Advair 250-50 Diskus] 1 each IH BID #1 blst.w.dev Prednisone [predniSONE 10 mg (6-Day Pack, 21 Tabs)] 10 mg PO .TAPER #1 tab.ds.pk ALBUTEROL NEB's [Proventil 0.083% NEBS] 2.5 mg IH TID PRN #120 neb PRN Reason: Wheezing Tiotropium [place] [Spiriva Respimat] 1 each IH DAILY #1 mist.inhal
[2018-05-11 14:52] VITALS: BP 142/90
== END 2018-05-11 15:05 | disposition home or self-care (01) | DRG 189 ==
LOC: ED 19:46 → 2B-ACE 05-09 00:49
PROVIDERS: ADMIT Internal Medicine; ATTEND Internal Medicine
DX: J96.00 Acute respiratory failure, unspecified whether with hypoxia or hypercapnia (principal); J44.1 Chronic obstructive pulmonary disease with (acute) exacerbation; E87.2 Acidosis; D68.59 Other primary thrombophilia; E87.5 Hyperkalemia; I48.91 Unspecified atrial fibrillation; E66.9 Obesity, unspecified; I25.10 Atherosclerotic heart disease of native coronary artery without angina pectoris; E03.9 Hypothyroidism, unspecified; E78.5 Hyperlipidemia, unspecified; K21.9 Gastro-esophageal reflux disease without esophagitis; M19.90 Unspecified osteoarthritis, unspecified site; Z96.653 Presence of artificial knee joint, bilateral; I11.0 Hypertensive heart disease with heart failure; I50.9 Heart failure, unspecified; Z88.6 Allergy status to analgesic agent; Z68.36 Body mass index [BMI] 36.0-36.9, adult; Z79.01 Long term (current) use of anticoagulants; Z90.49 Acquired absence of other specified parts of digestive tract; Z88.0 Allergy status to penicillin; Z88.2 Allergy status to sulfonamides; Z79.899 Other long term (current) drug therapy; Z90.710 Acquired absence of both cervix and uterus
CPT/HCPCS: 36415; 71046; 80048; 80053; 83880; 85025; 87070; 87116; 87205; 93005; 93010; 94640; 96374; G0378; A9270-GY; J0456; J2930; J7050

== ENCOUNTER 2018-06-04 06:39 | Day surgery (SDC) | payer MEDICARE ==
--- NOTE | 2018-06-04 07:35 | Anesthesia Consultation ---
Anesthesia Consult and Med Hx Date of service: 06/04/18 - Airway Anesthetic Teeth Evaluation: Good ROM Head & Neck: Adequate Mental/Hyoid Distance: Adequate Mallampati Class: Class III Intubation Access Assessment: Possibly Difficult - Pre-Operative Health Status ASA Pre-Surgery Classification: ASA3 Proposed Anesthetic Plan: MAC - Pulmonary Hx Smoking: No (quit) COPD: Yes - Cardiovascular System Hx Hypertension: Yes Hx Coronary Artery Disease: Yes (no chest pain) Hx Angina: No Hx Cardia Arrhythmia: Yes (AFib) - Central Nervous System CVA: No Hx Psychiatric Problems: No - Gastrointestinal Hx Gastroesophageal Reflux Disease: No (Prilosec PRN) - Endocrine Hx Insulin Dependent Diabetes: No Hx Hypothyroidism: Yes - Other Systems Hx Cancer: No
--- NOTE | 2018-06-04 07:36 | Anesthesia Day of Surgery ---
Anesthesia Day of Surgery - Day of Surgery Patient Examined: Yes Patient H&P Reviewed: Yes Patient is NPO: Yes Beta Blockers: Yes
[2018-06-04 07:58] LABS: Basophils % (Auto) 0.7 % (0.0-1.8); Eosinophils # (Auto) 0.3 K/mm3 (0.0-0.4); Eosinophils % (Auto) 5.4 % (0.0-4.3); Hematocrit 36.9 % (30.3-42.9); Hemoglobin 11.5 gm/dl (10.1-14.3); Lymphocytes # (Auto) 1.4 K/mm3 (1.2-5.4); Lymphocytes % (Auto) 27.2 % (13.4-35.0); Mean Corpuscular HGB Conc 31 % (30-34); Monocytes # (Auto) 0.7 K/mm3 (0.0-0.8); Monocytes % (Auto) 13.8 % (0.0-7.3); Platelet Count 197 K/mm3 (140-440); Red Blood Count 6.32 M/mm3 (3.65-5.03); Red Cell Distribution Width 18.6 % (13.2-15.2)
[2018-06-04 08:00] LABS: Mean Corpuscular Volume 58 fl (79-97)
[2018-06-04] MEDS ORDERED: NACL 0.9% 500 ML 500 ML IV SCH (08:00)
[2018-06-04 08:09] LABS: INR 1.19 (0.87-1.13)
[2018-06-04 08:10] LABS: Partial Thromboplastin Time 30.4 Sec. (24.2-36.6)
[2018-06-04 08:17] LABS: Calcium 9.1 mg/dL (8.4-10.2)
[2018-06-04] MEDS ORDERED: DIPRIVAN 10 MG/ML IV ONE (08:23)
--- NOTE | 2018-06-04 09:36 | Short Stay Summary ---
Short Stay Documentation Date of service: 06/04/18 - History H&P: obtained from office - Allergies and Medications Current Medications: Allergies aspirin Allergy (Verified 12/20/14 10:08) Anaphylaxis NSAIDS (Non-Steroidal Anti-Inflamma Allergy (Verified 12/20/14 10:08) Anaphylaxis Penicillins Allergy (Verified 12/20/14 10:08) Hives prochlorperazine [From Compazine] Allergy (Verified 12/20/14 10:08) Unknown prochlorperazine edisylate [From Compazine] Allergy (Verified 12/20/14 10:08) Unknown prochlorperazine maleate [From Compazine] Allergy (Verified 12/20/14 10:08) Unknown Sulfa (Sulfonamide Antibiotics) Allergy (Verified 12/20/14 10:08) Hives Home Medications Medication Instructions Recorded Confirmed Last Taken Type Levothyroxine [Synthroid] 75 mcg PO QAM 01/31/15 05/09/18 12/31/17 History Flecainide [Tambocor] 50 mg PO Q12H 12/07/16 05/10/18 12/31/17 History Apixaban [Eliquis] 5 mg PO Q12HR #30 tablet 12/09/16 05/09/18 12/31/17 Rx AtorvaSTATin [Lipitor] 40 mg PO QHS #30 tablet 12/09/16 05/09/18 12/31/17 Rx Clopidogrel [Plavix] 75 mg PO QDAY #30 tablet 12/09/16 05/09/18 12/31/17 Rx hydrALAZINE [Apresoline TAB] 25 mg PO BID #30 tablet 12/09/16 05/09/18 12/31/17 Rx Acetaminophen [Acetaminophen TAB] 650 mg PO Q6H PRN #15 tablet 01/04/18 05/09/18 Unknown Rx Benzonatate [Tessalon Perles] 100 mg PO Q8HR PRN #14 capsule 01/04/18 05/09/18 12/31/17 Rx Budesonide [Pulmicort Respules] 0.5 mg IH Q12HR #60 nebu 01/04/18 05/09/18 Unknown Rx Pantoprazole [Protonix TAB] 20 mg PO QDAY PRN #30 tablet. 01/04/18 05/09/18 12/31/17 Rx Furosemide [Lasix TAB] 20 mg PO QDAY 05/10/18 05/10/18 Unknown History Metoprolol Succinate [Toprol Xl] 50 mg PO HS 05/10/18 05/10/18 Unknown History ALBUTEROL Inhaler(NF) [VENTOLIN 2 puff IH Q4H PRN #1 inha 05/11/18 Unknown Rx Inhaler(NF)] ALBUTEROL NEB's [Proventil 0.083% 2.5 mg IH TID PRN #120 neb 05/11/18 Unknown Rx NEBS] Fluticasone/Salmeterol [Advair 1 each IH BID #1 blst.w.dev 05/11/18 Unknown Rx 250-50 Diskus] Prednisone [predniSONE 10 mg 10 mg PO .TAPER #1 tab.ds.pk 05/11/18 Unknown Rx (6-Day Pack, 21 Tabs)] Tiotropium [place] [Spiriva 1 each IH DAILY #1 mist.inhal 05/11/18 Unknown Rx Respimat] Active Medications Sodium Chloride (Nacl 0.9% 500 Ml) 500 mls @ 50 mls/hr IV DIRECT MINDI Last Admin: 06/04/18 08:38 Dose: 50 mls/hr Documented by: - Brief post op/procedure progress note Date of procedure: 06/04/18 Pre-op diagnosis: afib Post-op diagnosis: other (converted to nsr) Procedure: cardiioversion with 360j biphasic from afib to nsr Anesthesia: MAC Estimated blood loss: none Pathology: none - Disposition Condition at discharge: Good Disposition: [id number] TO HOME OR SELFCARE - Discharge Diagnoses (1) CAD (coronary artery disease) Status: Acute Qualifiers: Coronary Disease-Associated Artery/Lesion type: [place] artery [place] vs. transplanted heart: [place] heart Associated angina: with stable angina Qualified Code(s): I25.118 - Atherosclerotic heart disease of [place] coronary artery with other forms of angina pectoris (2) Hyperlipemia, mixed Status: Chronic (3) Atrial fibrillation and flutter Status: Chronic (4) Shortness of breath Status: Chronic (5) Hypertension Status: Chronic Qualifiers: Hypertension type: essential hypertension Qualified Code(s): I10 - Essential (primary) hypertension Short Stay Discharge Plan Activity: advance as tolerated Diet: low fat, low cholesterol Follow up with: ERICK DOCKERY MD [Primary Care Provider] - 7 Days
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
[2018-06-04 11:23] VITALS: BP 158/65
== END 2018-06-04 11:10 | disposition home or self-care (01) ==
LOC: CATHLABREC 06:39
PROVIDERS: ATTEND Internal Medicine
DX: I25.10 Atherosclerotic heart disease of native coronary artery without angina pectoris (principal); I48.91 Unspecified atrial fibrillation; I10 Essential (primary) hypertension; K21.9 Gastro-esophageal reflux disease without esophagitis; E78.2 Mixed hyperlipidemia; J44.9 Chronic obstructive pulmonary disease, unspecified; M19.90 Unspecified osteoarthritis, unspecified site; E03.9 Hypothyroidism, unspecified; Z88.6 Allergy status to analgesic agent; Z88.0 Allergy status to penicillin; Z88.2 Allergy status to sulfonamides; Z79.899 Other long term (current) drug therapy; Z90.49 Acquired absence of other specified parts of digestive tract; Z98.890 Other specified postprocedural states; Z90.710 Acquired absence of both cervix and uterus; Z87.440 Personal history of urinary (tract) infections; Z96.653 Presence of artificial knee joint, bilateral; Z86.2 Personal history of diseases of the blood and blood-forming organs and certain disorders involving the immune mechanism; Z88.8 Allergy status to other drugs, medicaments and biological substances
CPT/HCPCS: 36415; 80048; 85025; 85610; 85730; 92960; 93005; 93010; J2704; J7040

== ENCOUNTER 2019-03-04 14:59 | Inpatient (IN) | payer OTHER, MEDICARE ==
[2019-03-04] MEDS ORDERED: MORPHINE 4 MG/1 ML INJ IV ONE ×2 (16:11→20:47)
[2019-03-04] MEDS ORDERED: ONDANSETRON 4 MG/2 ML INJ IV ONE (16:11)
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
[2019-03-04 17:06] LABS: Basophils % (Auto) 0.2 % (0.0-1.8); Eosinophils # (Auto) 0.1 K/mm3 (0.0-0.4); Eosinophils % (Auto) 0.6 % (0.0-4.3); Lymphocytes # (Auto) 1.7 K/mm3 (1.2-5.4); Lymphocytes % (Auto) 10.8 % (13.4-35.0); Mean Corpuscular HGB Conc 31 % (30-34); Monocytes % (Auto) 6.1 % (0.0-7.3); Platelet Count 208 K/mm3 (140-440); Red Blood Count 7.72 M/mm3 (3.65-5.03); Red Cell Distribution Width 18.3 % (13.2-15.2)
[2019-03-04 17:13] LABS: Hematocrit 45.1 % (30.3-42.9); Mean Corpuscular Volume 58 fl (79-97)
[2019-03-04 17:17] LABS: INR 1.15 (0.87-1.13)
[2019-03-04 17:18] LABS: Partial Thromboplastin Time 36.3 Sec. (24.2-36.6)
[2019-03-04 17:29] LABS: Alanine Aminotransferase 70 units/L (7-56); Albumin 4.4 g/dL (3.9-5); BUN/Creatinine Ratio 33; Blood Urea Nitrogen 20 mg/dL (7-17); Calcium 9.8 mg/dL (8.4-10.2); Hemolysis Index 42
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
[2019-03-04] MEDS ORDERED: ACETAMINOPHEN 325 MG TAB PO PRN (22:17)
[2019-03-04] MEDS ORDERED: LEVALBUTEROL 0.63 MG/3 ML NEBU IH PRN (22:21)
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
[2019-03-05] MEDS: MORPHINE 2 MG/1 ML INJ IV PRN ×4 (02:40→21:49)
[2019-03-05 06:07] LABS: Basophils % (Auto) 0.4 % (0.0-1.8); Eosinophils # (Auto) 0.2 K/mm3 (0.0-0.4); Eosinophils % (Auto) 2.2 % (0.0-4.3); Hematocrit 41.1 % (30.3-42.9); Lymphocytes # (Auto) 1.8 K/mm3 (1.2-5.4); Mean Corpuscular HGB Conc 32 % (30-34); Monocytes # (Auto) 1.1 K/mm3 (0.0-0.8); Monocytes % (Auto) 11.8 % (0.0-7.3); Platelet Count 193 K/mm3 (140-440); Red Blood Count 7.09 M/mm3 (3.65-5.03); Red Cell Distribution Width 17.9 % (13.2-15.2)
[2019-03-05 06:10] LABS: INR 1.14 (0.87-1.13)
[2019-03-05 06:11] LABS: Partial Thromboplastin Time 36.7 Sec. (24.2-36.6)
[2019-03-05 06:13] LABS: Mean Corpuscular Volume 58 fl (79-97)
[2019-03-05 06:21] LABS: BUN/Creatinine Ratio 24; Blood Urea Nitrogen 17 mg/dL (7-17); Calcium 9.4 mg/dL (8.4-10.2); Hemolysis Index 5
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
[2019-03-05] MEDS: FUROSEMIDE 20 MG TAB PO SCH (12:42)
[2019-03-05] MEDS: DIGOXIN 0.125 MG TAB PO SCH (12:45)
--- NOTE | 2019-03-05 13:22 | XRay Report ---
CHEST 1 VIEW 1302 INDICATION / CLINICAL INFORMATION: b/l rib fx. COMPARISON: Chest x-ray 05/08/2018, CT chest 03/04/2019 FINDINGS: SUPPORT DEVICES: None HEART / MEDIASTINUM: No significant abnormality. LUNGS / PLEURA: Possible developing infiltrate is seen in the right medial lung base. Mild atelectasi s is seen in the left base. There may be minimal bilateral pleural effusions. No pneumothorax. ADDITIONAL FINDINGS: Bilateral rib fractures seen on CT are not well identified. IMPRESSION: Possible developing infiltrate in the right. Recommend follow-up. Signer Name: Richard Forte MD Signed: 03/05/2019 1:18 PM Workstation Name: [email or web address]
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
[2019-03-05] MEDS ORDERED: METOPROLOL TARTRATE 50 MG TAB PO ONE (16:00)
[2019-03-05] MEDS: HYDROcodone/ACETAMINOPHEN 5-325 MG TAB PO PRN (19:24)
[2019-03-05] MEDS: METOPROLOL SUCCINATE XL 50 MG TAB PO SCH (21:49)
[2019-03-05] MEDS: APIXABAN 5 MG TAB PO SCH (21:50)
[2019-03-05] MEDS: ONDANSETRON 4 MG/2 ML INJ IV PRN (21:50)
[2019-03-06] MEDS: HYDROcodone/ACETAMINOPHEN 5-325 MG TAB PO PRN ×3 (02:43→13:54)
[2019-03-06] MEDS: LEVOTHYROXINE 75 MCG TAB PO SCH (05:30)
[2019-03-06 06:16] LABS: Basophils # (Auto) 0.1 K/mm3 (0.0-0.1); Basophils % (Auto) 0.6 % (0.0-1.8); Eosinophils # (Auto) 0.3 K/mm3 (0.0-0.4); Eosinophils % (Auto) 3.1 % (0.0-4.3); Hematocrit 40.4 % (30.3-42.9); Hemoglobin 12.5 gm/dl (10.1-14.3); Lymphocytes # (Auto) 1.7 K/mm3 (1.2-5.4); Mean Corpuscular HGB Conc 31 % (30-34); Platelet Count 176 K/mm3 (140-440); Red Blood Count 7.02 M/mm3 (3.65-5.03); Red Cell Distribution Width 17.3 % (13.2-15.2)
[2019-03-06 06:25] LABS: Mean Corpuscular Volume 58 fl (79-97)
[2019-03-06 06:39] LABS: BUN/Creatinine Ratio 21; Blood Urea Nitrogen 17 mg/dL (7-17); Calcium 9.2 mg/dL (8.4-10.2); Hemolysis Index 7
[2019-03-06] MEDS: FUROSEMIDE 20 MG TAB PO SCH (09:52)
[2019-03-06] MEDS: DIGOXIN 0.125 MG TAB PO SCH (09:52)
[2019-03-06] MEDS: APIXABAN 5 MG TAB PO SCH ×2 (09:53→21:47)
[2019-03-06] MEDS ORDERED: FUROSEMIDE 20 MG TAB PO SCH (10:00)
[2019-03-06] MEDS ORDERED: DIGOXIN 0.125 MG TAB PO SCH (10:00)
--- NOTE | 2019-03-06 10:29 | XRay Report ---
CHEST 1 VIEW 03/06/2019 10:00 AM INDICATION / CLINICAL INFORMATION: follow up rib fractures. COMPARISON: Chest x-ray 03/05/2019 FINDINGS: SUPPORT DEVICES: None. HEART / MEDIASTINUM: Cardiac silhouette remains enlarged. LUNGS / PLEURA: Small bilateral pleural effusions, mild interstitial edema and linear bibasilar atele ctasis. No pneumothorax. ADDITIONAL FINDINGS: The nondisplaced bilateral rib fractures detected on CT are not visualized radio graphically. IMPRESSION: 1. Mild CHF and bibasilar atelectasis. Signer Name: David Truong MD Signed: 03/06/2019 10:25 AM Workstation Name: [email or web address]
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
[2019-03-06] MEDS: PANTOPRAZOLE 20 MG TAB PO PRN (15:29)
[2019-03-06] MEDS: ONDANSETRON 4 MG/2 ML INJ IV PRN (21:46)
[2019-03-06] MEDS: MORPHINE 2 MG/1 ML INJ IV PRN (21:47)
[2019-03-06] MEDS: METOPROLOL SUCCINATE XL 50 MG TAB PO SCH (21:54)
[2019-03-07] MEDS: HYDROcodone/ACETAMINOPHEN 5-325 MG TAB PO PRN ×2 (02:54→12:44)
[2019-03-07] MEDS: LEVOTHYROXINE 75 MCG TAB PO SCH (05:24)
[2019-03-07] MEDS: MORPHINE 2 MG/1 ML INJ IV PRN ×2 (07:35→16:22)
[2019-03-07] MEDS: APIXABAN 5 MG TAB PO SCH ×3 (09:51→21:02)
[2019-03-07] MEDS: FUROSEMIDE 20 MG TAB PO SCH (09:52)
[2019-03-07] MEDS: DIGOXIN 0.125 MG TAB PO SCH (09:52)
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
[2019-03-07] MEDS: PANTOPRAZOLE 20 MG TAB PO PRN (12:48)
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
[2019-03-07] MEDS: HYDROcodone/ACETAMINOPHEN 7.5-325MG TAB PO PRN (20:36)
[2019-03-07] MEDS: METOPROLOL SUCCINATE XL 50 MG TAB PO SCH ×2 (20:37→21:02)
[2019-03-08] MEDS: ONDANSETRON 4 MG/2 ML INJ IV PRN (00:07)
[2019-03-08] MEDS: MORPHINE 2 MG/1 ML INJ IV PRN (00:08)
[2019-03-08] MEDS: LEVOTHYROXINE 75 MCG TAB PO SCH (05:14)
[2019-03-08] MEDS: HYDROcodone/ACETAMINOPHEN 7.5-325MG TAB PO PRN ×4 (05:14→17:42)
[2019-03-08] MEDS: APIXABAN 5 MG TAB PO SCH ×2 (09:31→22:20)
[2019-03-08] MEDS: FUROSEMIDE 20 MG TAB PO SCH (09:31)
[2019-03-08] MEDS: DIGOXIN 0.125 MG TAB PO SCH (09:32)
[2019-03-08] MEDS: DOCUSATE SODIUM 100 MG CAP PO SCH (10:20)
[2019-03-08] MEDS: PANTOPRAZOLE 20 MG TAB PO PRN ×2 (17:45→22:21)
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
[2019-03-08] MEDS: METOPROLOL SUCCINATE XL 50 MG TAB PO SCH (22:20)
[2019-03-08] MEDS: HYDROcodone/ACETAMINOPHEN 10-325MG TAB PO PRN (22:21)
[2019-03-09] MEDS: HYDROcodone/ACETAMINOPHEN 10-325MG TAB PO PRN ×4 (02:20→14:18)
[2019-03-09] MEDS: LEVOTHYROXINE 75 MCG TAB PO SCH (05:39)
[2019-03-09] MEDS: DOCUSATE SODIUM 100 MG CAP PO SCH (09:08)
[2019-03-09] MEDS: APIXABAN 5 MG TAB PO SCH (09:08)
[2019-03-09] MEDS: DIGOXIN 0.125 MG TAB PO SCH (09:09)
[2019-03-09] MEDS: FUROSEMIDE 20 MG TAB PO SCH (10:36)
--- NOTE | 2019-03-09 13:22 | Discharge Summary ---
Providers - Providers Date of Admission: 03/05/19 11:56 Date of discharge: 03/09/19 Attending physician: MONA BETH 03/04/19 21:13 Consult to Physician [CONS] Routine Comment: Dr. Byers spoke with Dr. Reed @ [id number] Consulting Provider: EARL REED Physician Instructions: Reason For Exam: multiple b/l rib fractures 03/06/19 12:51 Physical Therapy Evaluation and Treat [CONS] Routine Comment: Reason For Exam: multiple rib fx, deconditioning Weight bearing status?: Full wt bearing Assistive devices?: No Primary care physician: AUTO WASHER Hospitalization Condition: Fair Disposition: DC/[place]-[address] [facility] Core Measure Documentation - Palliative Care Palliative Care/ Comfort Measures: Not Applicable Exam - Constitutional Vitals: Temp Pulse Resp BP Pulse Ox 98.6 F 74 18 120/66 92 03/09/19 07:33 03/09/19 09:09 03/09/19 06:17 03/09/19 09:09 03/09/19 07:33 Plan Activity: advance as tolerated Diet: low fat, low cholesterol, low salt Special Instructions: physical therapy, home health RN Plan of Treatment: 1.Follow up with PCP in 1 week. 2.Home health RN 3.Home Health PT Follow up with: PRIMARY CARE, [Primary Care Provider] - 3-5 Days Prescriptions: HYDROcodone/APAP 10-325 [[place] 10-325 mg TAB] 1 each PO Q6H PRN #12 tablet PRN Reason: Pain, Moderate (4-6)
[2019-03-09 14:55] VITALS: BP 127/70
[2019-03-09] MEDS: PANTOPRAZOLE 20 MG TAB PO PRN (16:01)
== END 2019-03-09 16:40 | disposition home health service (06) | DRG 871 ==
LOC: ED 14:59 → 2B-ACE 21:32 → OBSVTOIN 03-05 11:56
PROVIDERS: ADMIT Internal Medicine Geriatric Medicine; ATTEND Internal Medicine
DX: A41.9 Sepsis, unspecified organism (principal); S22.43XA Multiple fractures of ribs, bilateral, initial encounter for closed fracture; J96.01 Acute respiratory failure with hypoxia; J18.9 Pneumonia, unspecified organism; I48.20 Chronic atrial fibrillation, unspecified; J44.0 Chronic obstructive pulmonary disease with (acute) lower respiratory infection; I50.9 Heart failure, unspecified; K21.9 Gastro-esophageal reflux disease without esophagitis; Z96.653 Presence of artificial knee joint, bilateral; M19.90 Unspecified osteoarthritis, unspecified site; E03.9 Hypothyroidism, unspecified; I48.91 Unspecified atrial fibrillation; V49.88XA Car occupant (driver) (passenger) injured in other specified transport accidents, initial encounter; I11.0 Hypertensive heart disease with heart failure; Z79.01 Long term (current) use of anticoagulants; Z90.49 Acquired absence of other specified parts of digestive tract; Z90.710 Acquired absence of both cervix and uterus; Y93.89 Activity, other specified; Y92.89 Other specified places as the place of occurrence of the external cause; Y99.8 Other external cause status; Z88.2 Allergy status to sulfonamides; Z88.6 Allergy status to analgesic agent; Z88.1 Allergy status to other antibiotic agents
CPT/HCPCS: 36415; 71045; 71260; 74177; 80048; 80053; 85025; 85610; 85730; 87040; 93005; 93010; 94640; 94760; G0378; J1956; J2270; J2405; Q9967